=== PATIENT | male | born 1990 | race Caucasian/White ===

== ENCOUNTER 2020-01-30 12:36 | Emergency (ER) | payer MEDICAID, SELFPAY ==
[2020-01-30 13:31] VITALS: BP 132/76; PULSE 75; RESP 18; TEMP 36.7; O2SAT 100; BMI 27.4
--- NOTE | 2020-01-30 13:39 | XR_ITS ---
EXAMINATION: XR ANKLE, LEFT CLINICAL INFORMATION: Trauma. Pain and swelling. COMPARISON: None TECHNIQUE: AP, lateral, and mortise views of the left ankle. FINDINGS: The bones and soft tissues are normal. No fracture. Alignment is anatomic. Joint spaces are maintained. No joint effusion. IMPRESSION: Normal left ankle.
--- NOTE | 2020-01-30 13:41 | ED.LOWEXIN ---
HPI - Extremity Injury (Lower) General Chief Complaint: Extremity Injury, Lower Stated Complaint: l ankle inj Time Seen by Provider: 01/30/20 13:39 Source: patient Mode of arrival: ambulatory Limitations: no limitations History of Present Illness HPI Narrative: states about 5 days ago he was horsing around with his knees and rolled his left ankle where he has been having pain in the lateral ankle since. States there was some bruising that is starting to fade away. Denies any other injury. MD complaint: ankle injury Onset (ago): day(s) Injury: Left: ankle Type of Injury: eversion Place: home Severity: mild Relieving factors: immobilization and rest Exacerbating factors: weight bearing Context: walking Related Data Allergies Allergy/AdvReac Type Severity Reaction Status Date / Time No Known Allergies Allergy Unknown unknown Verified 01/30/20 13:31 [NO KNOWN ALLERGIES] Review of Systems Review of Systems: Constitutional: No Weight loss, No Fever, No Chills, No Night Sweats, No Fatigue, No Malaise ENT/Mouth: No Hearing loss, No Ear Pain, No Nasal Congestion, No Sinus Pain, No Hoarseness, No sore throat, No Rhinorrhea, No Swallowing Difficulty Eyes: No Eye Pain, No Swelling, No Redness, No Foreign Body, No Discharge, No Vision Changes Cardiovascular: No Chest Pain, No SOB, No Dyspnea on Exertion, No Orthopnea, No Edema, No Palpitations Respiratory: No Cough, No Sputum, No Wheezing, No Smoke Exposure, No Dyspnea Gastrointestinal: no complaints Genitourinary: No complaints Musculoskeletal: No joint pain, No Myalgias, + ankle pain Skin: No Skin Lesions, No rash Neuro: No Weakness, No Numbness, No Paresthesias, No Loss of Consciousness, No Dizziness, No Headache Psych: No Anxiety/Panic, No Depression, No SI/HI/AH/VH, No Social Issues, Heme/Lymph: No Bruising, No Bleeding,No Lymphadenopathy Endocrine: No Polyuria, No Polydipsia, No Temperature Intolerance PMF Past Medical History Attestation statement: The following information was validated with the patient. Medical History (Updated 01/30/20 @ 15:16 by Ryan Farias NP) Asthma Social History Social History Advance Directives: No Advance Directives Information Provided: No Physical Exam Vital Signs: Vital Signs: Vital Signs Temp Pulse Resp BP Pulse Ox 01/30/20 13:31 98.0 F 75 18 132/76 100 Body Mass Index 27.4 Const: General: cooperative and healthy appearing; No acute distress or intoxicated appearing Nutritional Appearance: average body habitus Orientation/consciousness: patient oriented x3 Neck: Neck: Yes normal visual inspection Chest: Chest palpation & inspection: normal inspection of the chest Resp: Effort & Inspection: normal respiratory effort Cardio: Jugular venous distension: no JVD : General: Yes no CVA tenderness Back/Spine/Pelvis: Back: no CVA tenderness Skin: General skin exam: no rashes or lesions noted Neuro: General: patient oriented x3 Extrem: Ankle/foot/toe images: 1. Slight ecchymoses slightly blue and yellowish. Mild tender palpation. Full range of motion. Neurovascular intact. Pulse is within normal limits. MDM - Extremity Injury (Lower) Differential Diagnosis Differential diagnosis: Likely ankle sprain and strain and ankle fracture; Unlikely acute internal derangement of knee, fracture of femur, fracture of hip, puncture wound of foot and fracture of toe Medical Records Attestation: I reviewed the patient's medical records. Lab Data Attestation: I reviewed the patient's lab results. Imaging Data Left ankle x-ray: Radiologist's impression: [address] [address] XRay Report Signed Patient: Chirag Alvarez XMR#: [id number] : 1990Acct:[id number] Age/Sex: 30 / MADM Date: 01/30/20 Loc: .ED Attending Dr: Ordering Physician: Ryan Farias NP Date of Service: 01/30/20 Procedure(s): XR ankle LT min 3V Accession Number(s): [id number] cc: Ryan Farias NP~ EXAMINATION: XR ANKLE, LEFT CLINICAL INFORMATION: Trauma. Pain and swelling. COMPARISON: None TECHNIQUE: AP, lateral, and mortise views of the left ankle. FINDINGS: The bones and soft tissues are normal. No fracture. Alignment is anatomic. Joint spaces are maintained. No joint effusion. IMPRESSION: Normal left ankle. Dictated By:MICHELLE RIOS MD Signed By:<Electronically signed by MICHELLE RIOS MD in OV>01/30/20 1436 DD/ 1339 TD/TT: Information Services Tech: PARUL Discharge Plan Discharge Clinical Impression: Ankle sprain and strain Patient Disposition: Home, Self-Care Instructions: Ankle Sprain (ED) Additional Instructions: ice, elevate Use supportive splint as provided X-ray did not show any acute fracture Ibuprofen [id number] alternating with Tylenol for pain discomfort Return if any concerns or worsening symptoms otherwise she started feeling better in a few days Thank you
== END 2020-01-30 15:42 | disposition home or self-care (01) ==
PROVIDERS: Emergency Provider Emergency Medicine; PCP Internal Medicine
DX: S93.402A Sprain of unspecified ligament of left ankle, initial encounter (principal); S96.912A Strain of unspecified muscle and tendon at ankle and foot level, left foot, initial encounter; X50.1XXA Overexertion from prolonged static or awkward postures, initial encounter; Y93.83 Activity, rough housing and horseplay; Y92.019 Unspecified place in single-family (private) house as the place of occurrence of the external cause; Y99.9 Unspecified external cause status
CPT/HCPCS: 73610; 99283

== ENCOUNTER 2020-09-19 21:44 | Emergency (ER) | payer MEDICAID, SELFPAY ==
[2020-09-19 21:49] VITALS: BP 127/74; PULSE 84; RESP 16; TEMP 36.9; O2SAT 95; BMI 27.4
[2020-09-19 22:00] VITALS: PULSE 114
--- NOTE | 2020-09-19 22:19 | ED_ITS ---
HPI - Asthma General Chief Complaint: Asthma Stated Complaint: asthma Time Seen by Provider: 09/19/20 22:19 Source: patient Mode of arrival: ambulatory Limitations: no limitations History of Present Illness HPI Narrative: Patient history of asthma been short of breath since yesterday tried his inhaler without much response does not have medicine for the nebulizer. No chest pain no fever, having dry cough mostly saturating 95% at room air on arrival history of similar attacks in the past no chest pain Related Data Previous Rx's Medication Instructions Recorded albuterol sulfate 2.5 mg INHALATION Q4-6H PRN #180 ml 09/20/20 albuterol sulfate [Proventil HFA] 2 puff INHALATION Q6H PRN #8.5 g 09/20/20 prednisone 40 mg PO DAILY #10 tab 09/20/20 Allergies Allergy/AdvReac Type Severity Reaction Status Date / Time No Known Allergies Allergy Unknown unknown Verified 09/19/20 21:54 [NO KNOWN ALLERGIES] Review of Systems Review of Systems: Yes all other systems are reviewed and are negative [facility] Past Medical History Medical History Asthma Social History Social History Patient Tobacco Use Status: Never used Tobacco Use of substances other than those prescribed or required for medical reasons: Yes Substance Use Type: Marijuana Advance Directives: No Advance Directives Information Provided: Yes Physical Exam Vital Signs: Vital Signs: Last Vital Signs Temp 98.5 F 09/19/20 21:49 Pulse 77 09/19/20 23:41 Resp 16 09/19/20 23:41 BP 120/73 09/19/20 23:41 Pulse Ox 100 09/19/20 23:41 Body Mass Index 27.4 Appearance: Alert. Oriented X3. In moderate respiratory distress Eyes: PERRLA, No Nystagmus ENT: Pharynx normal. Oral Mucosa moist Neck: Normal inspection. Neck supple. CVS: Normal heart rate and rhythm. Pulses normal. Respiratory: Moderate respiratory distress. Using accessory respiratory muscles Equal air entry bilateral, bilateral diffuse wheezing and rhonchi no rales decreased air entry bilateral Abdomen: Soft and nontender. Bowel sounds are present, no mass palpable, no CVA tenderness Skin: Skin warm and dry. Normal skin color. Normal skin turgor. Extremities: No lower extremity edema. No calf tenderness Neuro: Oriented X 3. No motor deficit. No sensory deficit. MDM - Asthma MDM Narrative Medical decision making narrative: Patient feeling much better now after nebul izing treatment IV steroids and magnesium still slight short of breath will give another treatment of albuterol 5 mg plan to discharge him home on prednisone and nebulizing treatment at home Medical Records Attestation: I reviewed the patient's medical records. Lab Data Attestation: I reviewed the patient's lab results. Result diagrams: 09/19/20 22:33 09/19/20 22:33 Labs: Lab Results 09/19/20 09/19/20 09/19/20 Range/Units 21:57 22:33 22:33 WBC 7.2 (4.8-10.8) X10*3/uL RBC 5.59 (4.60-5.80) X10*6/uL Hgb 15.5 (14.0-18.0) g/dl Hct 46.9 (42-52) % MCV 83.9 (80-98) fL MCH 27.7 (27.0-33.0) pg MCHC 33.0 (31.0-36.0) g/dl RDW 13.2 (11.0-16.0) % Plt Count 232 (160-400) X10*3/uL MPV 11.0 (9.4-12.4) fL Immature Gran % (Auto) 0.3 (0.0-0.4) % Neut % (Auto) 59.8 (45-73) % Lymph % (Auto) 25.9 (20-40) % [place] % (Auto) 7.0 (2-11) % Eos % (Auto) 6.4 H (0-4) % Baso % (Auto) 0.6 (0-2) % Lymph # (Auto) 1.9 (1.2-4.9) X10*3/uL [place] # (Auto) 0.5 (0.1-1.2) X10*3/uL Eos # (Auto) 0.5 H (0.0-0.4) X10*3/uL Baso # (Auto) 0.0 (0.0-0.2) X10*3/uL Abs Immat Gran (auto) 0.02 (0.00-0.03) X10*3/uL Absolute Neuts (auto) 4.3 (2.0-8.3) X10*3/uL Absolute Nucleated RBC 0.000 (0.0-0.012) X10*3/uL Nucleated RBC % (auto) 0.0 (0.0-0.2) /100WBC Sodium 140 (135-145) mmol/L Potassium 4.6 (3.3-5.1) mmol/L Chloride 103 (96-108) mmol/L Carbon Dioxide 29 (22-29) mmol/L Anion Gap 13 (12-20) BUN 12 (9-16) mg/dL Creatinine 1.26 (0.5-1.4) mg/dL Estim Creat Clear Calc 72.7 Estimated GFR > 60 Random Glucose 88 (60-115) mg/dL Calcium 10.4 H (8.4-10.2) mg/dL Coronavirus (PCR) NEGATIVE (Negative) Influenza Type A (PCR) NEGATIVE (Negative) Influenza Type B (PCR) NEGATIVE (Negative) RSV RNA Qual (PCR) NEGATIVE (Negative) Discharge Plan Discharge Clinical Impression: Asthma with acute exacerbation Qualifiers: Asthma severity: moderate Asthma persistence: persistent Qualified Code(s): J45.41 - Moderate persistent asthma with (acute) exacerbation Patient Disposition: Home, Self-Care Instructions: Asthma (ED) Additional Instructions: Take medication as prescribed and follow with PCP Prescriptions: New prednisone 20 mg tablet 40 mg PO DAILY Qty: 10 RF: 0 albuterol sulfate 2.5 mg /3 mL (0.083 %) solution for nebulization 2.5 mg inhalation Q4-6H PRN (Reason: shortness of breath or wheezing) Qty: 180 RF: 0 albuterol sulfate [Proventil HFA] 90 mcg/actuation HFA aerosol inhaler 2 puff inhalation Q6H PRN (Reason: shortness of breath or wheezing) Qty: 8.5 RF: 2
[2020-09-19 22:37] LABS: MANUAL DIFF FLAG NO
[2020-09-19 22:39] LABS: Basophils Percent Auto 0.6 % (0-2); Eosinophils Absolute Auto 0.5 X10*3/uL (0.0-0.4); Eosinophils Percent Auto 6.4 % (0-4); Hematocrit 46.9 % (42-52); Hemoglobin 15.5 g/dl (14.0-18.0); Imm Gran Abs Auto 0.02 X10*3/uL (0.00-0.03); Imm Gran Pct Auto 0.3 % (0.0-0.4); Lymphocytes Absolute Auto 1.9 X10*3/uL (1.2-4.9); Lymphocytes Percent Auto 25.9 % (20-40); Mean Corpuscular Hemoglobin 27.7 pg (27.0-33.0); Mean Corpuscular Volume 83.9 fL (80-98); Monocytes Absolute Auto 0.5 X10*3/uL (0.1-1.2); Neutrophils Absolute Auto 4.3 X10*3/uL (2.0-8.3); Neutrophils Percent Auto 59.8 % (45-73); Platelet Count 232 X10*3/uL (160-400); Red Blood Count 5.59 X10*6/uL (4.60-5.80); Red Cell Distribution Width 13.2 % (11.0-16.0); White Blood Count 7.2 X10*3/uL (4.8-10.8)
[2020-09-19] MEDS: methylPREDNISolone Sod Succ 125 MG/2 ML VIAL IVPUSH (22:50)
[2020-09-19] MEDS: Magnesium Sulfate/H2O 2 GM/50 ML PIGGYBACK IV (22:50)
[2020-09-19] MEDS: 0.9 % Sodium Chloride 1,000 ML 999 ML IVCONT (22:50)
[2020-09-19 23:03] LABS: Anion Gap 13 (12-20); Blood Urea Nitrogen 12 mg/dL (9-16); Calcium 10.4 mg/dL (8.4-10.2); Carbon Dioxide 29 mmol/L (22-29); Chloride 103 mmol/L (96-108); Creatinine Clr Calc Pharmacy 72.7; Estimated Glomerular Filt Rate > 60; Glucose Random 88 mg/dL (60-115); Potassium 4.6 mmol/L (3.3-5.1); Sodium 140 mmol/L (135-145)
[2020-09-19] MEDS: Albuterol/Iprat 2.5/0.5MG 3 ML AMPUL.NEB INHALE (23:20)
[2020-09-19] MEDS: Albuterol Sulfate (0.083%) 2.5 MG/3 ML VIAL.NEB 5 MG INHALE (23:20)
[2020-09-19 23:21] VITALS: PULSE 77; O2SAT 99
[2020-09-19 23:41] VITALS: BP 120/73; PULSE 77; RESP 16; O2SAT 100
[2020-09-20 00:53] LABS: Influenza A PCR NEGATIVE (Negative); Influenza B PCR NEGATIVE (Negative); Resp Syncy Virus RNA Qual PCR NEGATIVE (Negative); SARS COV2 PCR INHOUSE NEGATIVE (Negative)
[2020-09-20] MEDS: Albuterol Sulfate (0.083%) 2.5 MG/3 ML VIAL.NEB 5 MG INHALE (01:09)
[2020-09-20 01:10] VITALS: PULSE 79; O2SAT 95
--- NOTE | 2020-09-20 01:54 | PC.NURSE ---
When this feature writer went in to discharge patient he stated that he was dizzy. Patient just finished his nebulizer treatment. Patient's vss and patient was given a soda as well as some crackers. Will recheck patient's vital signs in 15 minutes
== END 2020-09-20 01:45 | disposition home or self-care (01) ==
PROVIDERS: Emergency Provider Internal Medicine; PCP Internal Medicine
DX: J45.41 Moderate persistent asthma with (acute) exacerbation (principal); Z20.822 Contact with and (suspected) exposure to COVID-19; Z79.899 Other long term (current) drug therapy; F12.90 Cannabis use, unspecified, uncomplicated
CPT/HCPCS: 0241U; 36415; 80048; 85025; 94640; 94644; 96361; 96365; 99285; J2930; J3475

== ENCOUNTER 2020-12-12 18:37 | Emergency (ER) | payer MEDICAID, SELFPAY ==
--- NOTE | ~2020-12-12 | XR_ITS ---
EXAMINATION: XR FOOT, RIGHT CLINICAL INFORMATION: Pain COMPARISON: None TECHNIQUE: AP, lateral, and oblique views of the right foot. FINDINGS: No acute fracture or dislocation. No bony erosion or osteopenia. XR/XR foot RT min 3V IMPRESSION: No bony finding.
[2020-12-12 18:58] VITALS: BP 127/76; PULSE 82; RESP 16; TEMP 36.8; O2SAT 97; BMI 27.4
--- NOTE | 2020-12-12 21:54 | ED.EXTPRO ---
HPI - Extremity Problem General Chief complaint: Extremity Problem Stated complaint: feet swelling Time Seen by Provider: 12/12/20 21:33 Source: patient Mode of arrival: ambulatory History of Present Illness HPI Narrative: 30-year-old male without significant past medical history presents with complaints of the bottom of his right foot being swollen and painful since yesterday but denies any associated trauma or fevers, chills and thinks that it is secondary to an allergic reaction but none eyes any noted redness. The pain seems to be primarily at 2nd and 3rd right toes. Related Data Previous Rx's Medication Instructions Recorded albuterol sulfate 2.5 mg INHALATION Q4-6H PRN #180 ml 09/20/20 albuterol sulfate 90 mcg/actuation 2 puff INHALATION Q6H PRN #8.5 g 09/20/20 aerosol inhaler (Proventil HFA) prednisone 20 mg tablet 40 mg PO DAILY #10 tab 09/20/20 Allergies Allergy/AdvReac Type Severity Reaction Status Date / Time No Known Allergies Allergy Unknown unknown Verified 09/19/20 21:54 [NO KNOWN ALLERGIES] Review of Systems Review of Systems: Pertinent positives and negatives as stated in HPI 10 point review of systems is otherwise negative. PMFSH Past Medical History Source: nursing notes reviewed Medical History Asthma Social History Social History Patient Tobacco Use Status: Never used Tobacco Substance Use Type: Marijuana Advance Directives: No Advance Directives Information Provided: No Physical Exam Vital Signs: Vital Signs: Last Vital Signs Temp 98.0 F 12/12/20 22:12 Pulse 59 12/12/20 22:12 Resp 18 12/12/20 22:12 BP 118/72 12/12/20 22:12 Pulse Ox 98 12/12/20 22:12 Body Mass Index 27.4 VITAL SIGNS: Reviewed. GENERAL: Well developed, well nourished, in no acute distress. HEAD: Normocephalic/atraumatic EYES: PERRLA, EOMI LUNGS: Normal breath sounds. SpO2<97> CARDIOVASCULAR: Regular rate and rhythm without noted murmurs ABDOMEN: Soft, non-tender, non-distended with bowel sounds. RIGHT FOOT: No erythema, induration, ulceration, skin breaks, paronychia, palpable DP/PT and capillary refill less than 3 seconds with full range of motion noted at the ankle no pain along the plantar fasciitis distribution and when patient stops dorsiflexing his toes the MTP portion of the sole of his foot appears normal when compared to left. SKIN: Inspection of the skin reveals no rashes, induration, erythema, ulcerations skin break NEUROLOGIC: Alert and oriented x 4. Course Course Course Narrative: 30-year-old male with history and clinical presentation suggestive of possible Flores's but not likely will obtain an x-ray to rule out any bony/joint pathology and provide patient with combination analgesics. Review of all investigations negative for acute findings and on re-evaluation patient reports some improvement with combination analgesics and otherwise discharged home with instructions to ice and follow-up with his primary care provider. Discharge Plan Discharge Clinical Impression: Pain in right foot Patient Disposition: Home, Self-Care Instructions: Metatarsalgia (DC) Additional Instructions: 1. Recommend alternating [id number] Tylenol and ibuprofen as needed for pain control. Recommend placing ice to unexposed skin at the location of your foot discomfort for 5-10 minutes, 3 to 4 times a day. 2. Recommend following up with your primary care provider in the next 2-3 days for re-evaluation further outpatient management. Return to the ER for acute worsening of your symptoms. Prescriptions: No Action prednisone 20 mg tablet 40 mg PO DAILY Qty: 10 RF: 0 albuterol sulfate 2.5 mg /3 mL (0.083 %) solution for nebulization 2.5 mg inhalation Q4-6H PRN (Reason: shortness of breath or wheezing) Qty: 180 RF: 0 albuterol sulfate [Proventil HFA] 90 mcg/actuation HFA aerosol inhaler 2 puff inhalation Q6H PRN (Reason: shortness of breath or wheezing) Qty: 8.5 RF: 2 Referrals: Physician,Unknown [Primary Care Provider] - 2 days
[2020-12-12 22:12] VITALS: BP 118/72; PULSE 59; RESP 18; TEMP 36.7; O2SAT 98
[2020-12-12] MEDS: Acetaminophen 325 MG TABLET 975 MG PO (22:45)
[2020-12-12] MEDS: Ibuprofen 400 MG TABLET PO (22:46)
== END 2020-12-12 22:47 | disposition home or self-care (01) ==
PROVIDERS: Emergency Provider Student in an Organized Health Care Education/Training Program
DX: R60.0 Localized edema (principal); M79.671 Pain in right foot; F12.90 Cannabis use, unspecified, uncomplicated; Z79.899 Other long term (current) drug therapy
CPT/HCPCS: 73630; 99283; 99284

== ENCOUNTER 2021-07-07 00:50 | Inpatient (IN) | payer MEDICAID, SELFPAY ==
[2021-07-07] VITALS (11 sets, daily range): BP systolic 99–144; BP diastolic 43–88; PULSE 73–123; RESP 18–32; TEMP 36.3–36.7; O2SAT 95–100; BMI 22.1
--- NOTE | ~2021-07-07 | XR_ITS ---
EXAMINATION: XR CHEST CLINICAL INFORMATION: Shortness of breath COMPARISON: 10/12/2019 TECHNIQUE: Frontal view of the chest was obtained. FINDINGS: Cardiac leads overlie the chest. The lungs are well expanded. There is no focal consolidation, edema, or effusion. No pneumothorax. The cardiomediastinal silhouette is within normal limits. No acute osseous abnormality. XR/XR chest 1V IMPRESSION: Clear lungs.
[2021-07-07] MEDS: methylPREDNISolone Sod Succ 125 MG/2 ML VIAL IVPUSH (01:00)
[2021-07-07] MEDS: Magnesium Sulfate/H2O 2 GM/50 ML PIGGYBACK IV (01:01)
--- NOTE | 2021-07-07 01:03 | ED.ASTHMA ---
HPI - Asthma General Chief Complaint: Asthma Stated Complaint: Asthma Attack Time Seen by Provider: 07/07/21 00:56 Source: patient Mode of arrival: EMS Limitations: no limitations History of Present Illness HPI Narrative: Patient history of asthma became very short of breath just prior to arrival uses nebulizer treatment at home without much relief when EMS arrived patient was breathing very shallow received 2 DuoNebs and able to speak full sentences no chest pain no fever Related Data Previous Rx's Medication Instructions Recorded albuterol sulfate 2.5 mg (3 mL) INHALATION Q4-6H PRN 09/20/20 #180 ml albuterol sulfate 90 mcg/actuation 2 puff INHALATION Q6H PRN #8.5 g 09/20/20 aerosol inhaler (Proventil HFA) prednisone 20 mg tablet 40 mg PO DAILY #10 tab 09/20/20 Allergies Allergy/AdvReac Type Severity Reaction Status Date / Time No Known Allergies Allergy Unknown unknown Verified 09/19/20 21:54 [NO KNOWN ALLERGIES] Review of Systems Review of Systems: Yes all other systems are reviewed and are negative [facility] Past Medical History Medical History Asthma Social History Social History Patient Tobacco Use Status: Never used Tobacco Substance Use Type: Marijuana Advance Directives: No Physical Exam Vital Signs: Vital Signs: Last Vital Signs Temp 98.1 F 07/07/21 01:45 Pulse 123 H 07/07/21 01:45 Resp 32 H 07/07/21 01:45 BP 144/88 H 07/07/21 01:45 Pulse Ox 100 07/07/21 01:45 BMI result Body Mass Index 22.1 Appearance: Alert. Oriented X3. In severe respiratory distress unable to speak full sentence ENT: Pharynx normal. Oral Mucosa moist Neck: Normal inspection. Neck supple. CVS: Normal heart rate and rhythm. Pulses normal. Respiratory: Moderate respiratory distress with bilateral wheezing and rhonchi no crackles Abdomen: Soft and nontender. Bowel sounds are present, no mass palpable, Skin: Skin warm and dry. Normal skin color. Normal skin turgor. Extremities: No lower extremity edema. No calf tenderness Neuro: Oriented X 3. MDM - Asthma MDM Narrative Medical decision making narrative: Patient with severe asthma attack received multiple continues nebulizing treatment still tachypneic and tachycardic very tight will admit patient for status asthmaticus chest x-ray negative for any infiltrate Lab Data Attestation: I reviewed the patient's lab results. Result diagrams: 07/07/21 02:23 07/07/21 02:23 Labs: Lab Results 07/07/21 07/07/21 07/07/21 Range/Units 02:23 02:23 02:23 WBC 13.0 H (4.8-10.8) X10*3/uL RBC 4.96 (4.60-5.80) X10*6/uL Hgb 13.5 L (14.0-18.0) g/dl Hct 41.2 L (42.0-52.0) % MCV 83.1 (80.0-98.0) fL MCH 27.2 (27.0-33.0) pg MCHC 32.8 (31.0-36.0) g/dl RDW 13.2 (11.0-16.0) % Plt Count 229 (160-400) X10*3/uL MPV 10.2 (9.4-12.4) fL Immature Gran % (Auto) 0.4 (0.0-0.4) % Neut % (Auto) 88.1 H (45-73) % Lymph % (Auto) 6.8 L (20-40) % [place] % (Auto) 2.8 (2-11) % Eos % (Auto) 1.7 (0-4) % Baso % (Auto) 0.2 (0-2) % Lymph # (Auto) 0.9 L (1.2-4.9) X10*3/uL [place] # (Auto) 0.4 (0.1-1.2) X10*3/uL Eos # (Auto) 0.2 (0.0-0.4) X10*3/uL Baso # (Auto) 0.0 (0.0-0.2) X10*3/uL Abs Immat Gran (auto) 0.05 H (0.00-0.03) X10*3/uL Absolute Neuts (auto) 11.5 H (2.0-8.3) x10*3/uL Absolute Nucleated RBC 0.000 (0.0-0.012) X10*3/uL Nucleated RBC % (auto) 0.0 (0.0-0.2) /100WBC Sodium 140 (135-145) mmol/L Potassium 3.5 D (3.3-5.1) mmol/L Chloride 102 (96-108) mmol/L Carbon Dioxide 23 (22-29) mmol/L Anion Gap 19 (12-20) BUN 9 (9-16) mg/dL Creatinine 1.27 (0.5-1.4) mg/dL Estim Creat Clear Calc 65.0 Estimated GFR > 60 Random Glucose 148 H D (60-115) mg/dL Calcium 9.5 D (8.4-10.2) mg/dL COVID-19 (JOSE) Negative (Negative) COVID-19 Clin Com See Note Discharge Plan Discharge Clinical Impression: Asthma with status asthmaticus Patient Disposition: Admitted As Inpatient
[2021-07-07] MEDS: Albuterol Sulfate (0.083%) 2.5 MG/3 ML VIAL.NEB 7.5 MG INHALE (01:15)
[2021-07-07] MEDS: 0.9 % Sodium Chloride 1,000 ML 999 ML IV (01:37)
[2021-07-07 02:29] LABS: Basophils Percent Auto 0.2 % (0-2); Eosinophils Absolute Auto 0.2 X10*3/uL (0.0-0.4); Eosinophils Percent Auto 1.7 % (0-4); Hematocrit 41.2 % (42.0-52.0); Hemoglobin 13.5 g/dl (14.0-18.0); Imm Gran Abs Auto 0.05 X10*3/uL (0.00-0.03); Imm Gran Pct Auto 0.4 % (0.0-0.4); Lymphocytes Absolute Auto 0.9 X10*3/uL (1.2-4.9); Lymphocytes Percent Auto 6.8 % (20-40); Mean Corpuscular HGB Conc 32.8 g/dl (31.0-36.0); Mean Corpuscular Hemoglobin 27.2 pg (27.0-33.0); Mean Corpuscular Volume 83.1 fL (80.0-98.0); Mean Platelet Volume 10.2 fL (9.4-12.4); Monocytes Absolute Auto 0.4 X10*3/uL (0.1-1.2); Monocytes Percent Auto 2.8 % (2-11); Neutrophils Absolute Auto 11.5 x10*3/uL (2.0-8.3); Neutrophils Percent Auto 88.1 % (45-73); Platelet Count 229 X10*3/uL (160-400); Red Blood Count 4.96 X10*6/uL (4.60-5.80); Red Cell Distribution Width 13.2 % (11.0-16.0)
[2021-07-07 02:30] LABS: MANUAL DIFF FLAG NO
[2021-07-07 02:42] LABS: Anion Gap 19 (12-20); Blood Urea Nitrogen 9 mg/dL (9-16); Calcium 9.5 mg/dL (8.4-10.2); Carbon Dioxide 23 mmol/L (22-29); Chloride 102 mmol/L (96-108); Estimated Glomerular Filt Rate > 60; Glucose Random 148 mg/dL (60-115); Potassium 3.5 mmol/L (3.3-5.1); Sodium 140 mmol/L (135-145)
[2021-07-07 02:46] LABS: COVID-19 Test Negative (Negative)
--- NOTE | 2021-07-07 04:04 | P.HPHOSP_ITS ---
History of Present Illness Date of Service: 07/07/21 Chief Complaint: shortness of breath 31-year-old male with a past medical history of asthma presented to the hospital with a chief complaint of shortness of breath. Patient reports that over the past 2 days he has been having shortness of breath at associated dry cough; the symptoms have been gradually worsening hence decided to come to the ER for further evaluation. Denies any triggers; denies any fever chills cough. Denies any nausea vomiting or diarrhea. Denies any urinary symptoms. Review of all other systems is negative except mentioned above ER course: Per ER team patient noted to be acutely short of breath; given multiple nebulizations and steroids; also noted to be tach and telemetry. Placed on supplemental oxygen. Admitted for further management PMFSH Medical History Asthma Pertinent family history: father had asthma Social History Patient Tobacco Use Status: Never used Tobacco Substance Use Type: Marijuana Advance Directives: No Meds Allergies Allergy/AdvReac Type Severity Reaction Status Date / Time No Known Allergies Allergy Unknown unknown Verified 09/19/20 21:54 [NO KNOWN ALLERGIES] Active Medications: Current Medications Acetaminophen (Acetaminophen 325 Mg Tablet) 650 mg PO Q6H PRN PRN Reason: Pain, Mild (Pain Scale 1-3) Albuterol/Ipratropium (Albuterol/Iprat 2.5/0.5mg 3 Ml Ampul.Neb) 3 ml INHALE RQ4H PRN PRN Reason: Shortness of Breath/Wheezing Albuterol/Ipratropium (Albuterol/Iprat 2.5/0.5mg 3 Ml Ampul.Neb) 3 ml INHALE RQ6H WHILE AWAKE ROXANA Benzonatate (Benzonatate 100 Mg Capsule) 100 mg PO TID PRN PRN Reason: Cough Famotidine (Famotidine/Pf 20 Mg/2 Ml Vial) 20 mg IVPUSH BID ROXANA Methylprednisolone Sodium Succinate (Methylprednisolone Sod Succ 40 Mg/Ml Vial) 40 mg IVPUSH Q6H ROXANA Senna (Sennosides 8.6 Mg Tablet) 17.2 mg PO BEDTIME PRN PRN Reason: Constipation Physical Exam Vital Signs and Narrative: Vital Signs: Last Vital Signs Temp 98.1 F 03/20/22 01:45 Pulse 123 H 07/07/21 01:45 Resp 32 H 07/07/21 01:45 BP 144/88 H 07/07/21 01:45 Pulse Ox 100 07/07/21 01:45 BMI result Body Mass Index 22.1 Gen: Appears be in no acute distress; on supplemental oxygen. Able to finish sentences. HEENT: NCAT, Moist mucosa. Pulmonary: bilateral inspiratory and expiratory wheezes noted CVS: Normal S1-S2 Abdomen: BS+, Soft, Nontender Extremities: Warm well perfused Neuro: Alert and awake. Results Labs CBC and Chem 7: 07/07/21 02:23 07/07/21 02:23 Labs: Laboratory Results - last 24 hr 07/07/21 07/07/21 07/07/21 02:23 02:23 02:23 MCV 83.1 MCH 27.2 MCHC 32.8 RDW 13.2 Plt Count 229 MPV 10.2 Immature Gran % (Auto) 0.4 Neut % (Auto) 88.1 H Lymph % (Auto) 6.8 L [place] % (Auto) 2.8 Eos % (Auto) 1.7 Baso % (Auto) 0.2 Lymph # (Auto) 0.9 L [place] # (Auto) 0.4 Eos # (Auto) 0.2 Baso # (Auto) 0.0 Abs Immat Gran (auto) 0.05 H Absolute Neuts (auto) 11.5 H Absolute Nucleated RBC 0.000 Nucleated RBC % (auto) 0.0 Anion Gap 19 Estim Creat Clear Calc 65.0 Estimated GFR > 60 Random Glucose 148 H D Calcium 9.5 D COVID-19 (JOSE) Negative COVID-19 Clin Com See Note Imaging Radiologist's Impressions: Impressions Chest X-Ray 07/07/21 01:45 IMPRESSION: Clear lungs. Assessment and Plan (1) Acute asthma exacerbation: Status: Acute Plan 31-year-old male with a past medical history of asthma presented to the hospital with a chief complaint of shortness of breath; noted to be in acute asthma exacerbation. Admitted for further management. Acute Asthma exacerbation: Continue nebulizations standing and p.r.n. Continue Solu-Medrol IV Tessalon p.r.n. Pulmonary consult Tachycardia: Likely in setting of multiple nebulizations in the ER. Monitor on telemetry. Elevated random blood glucose: Likely steroid induced. Monitor glucose levels. DVT prophylaxis: Lovenox Code status: Full code Quality Stroke Does the patient have a stroke diagnosis?: No VTE Prior VTE?: No VTE Risk Level:: Medical - moderate - high VTE Device Contraindication: Treatment Not Indicated VTE Drug Contraindication: N/A - Med Ordered
--- NOTE | 2021-07-07 04:32 | PC.NURSE ---
I assumed nursing care of Chirag upon his arrival to bed 13 via EMS from home for evaluation of asthma exacerbation. On arrival Chirag is taking a DuoNeb, +audible wheezing, +use of accessory muscles, RR 40, sat's on DuoNeb 96%, HR 136. Anwar to bedside on arrival, additional nebs ordered, EMS placed an IV on their arrival to bed 13 and I obtained requested Magnesium and SoluMedrol and they were administered immediately after arrival. RT also came to bedside immediately after arrival and auscultated LS and continued neb treatments for the pt. Within an hour the pts HR had decreased to 110's-120's, RR decreased to 22, O2 sats on 2L 97%, respirations non-labored. Chirag has remained alert, oriented x 3. He makes eye contact with RN and is extremely soft spoken. He has a flat affect and often when asked questions he does not respond verbally and looks away from me, as if avoiding making eye contact. He denies SI. Denies HI. He denies chest pain. No nausea. No vomiting. Pt has been taking PO fluids without difficulty. He is aware that he is TBADM and verbalizes an understanding of this.
[2021-07-07] MEDS: methylPREDNISolone Sod Succ 40 MG/ML VIAL IVPUSH ×2 (06:40→20:20)
[2021-07-07 06:59] LABS: MANUAL DIFF FLAG NO
[2021-07-07 07:15] LABS: Basophils Percent Auto 0.1 % (0-2); Hematocrit 42.1 % (42.0-52.0); Hemoglobin 13.6 g/dl (14.0-18.0); Imm Gran Abs Auto 0.05 X10*3/uL (0.00-0.03); Imm Gran Pct Auto 0.5 % (0.0-0.4); Lymphocytes Absolute Auto 0.5 X10*3/uL (1.2-4.9); Lymphocytes Percent Auto 4.7 % (20-40); Mean Corpuscular HGB Conc 32.3 g/dl (31.0-36.0); Mean Corpuscular Hemoglobin 27.4 pg (27.0-33.0); Mean Corpuscular Volume 84.9 fL (80.0-98.0); Mean Platelet Volume 10.8 fL (9.4-12.4); Monocytes Absolute Auto 0.1 X10*3/uL (0.1-1.2); Monocytes Percent Auto 1.2 % (2-11); Neutrophils Absolute Auto 10.2 x10*3/uL (2.0-8.3); Neutrophils Percent Auto 93.5 % (45-73); Platelet Count 250 X10*3/uL (160-400); Red Blood Count 4.96 X10*6/uL (4.60-5.80); Red Cell Distribution Width 13.4 % (11.0-16.0); SCAN SMEAR FLAG 1; White Blood Count 10.9 X10*3/uL (4.8-10.8)
[2021-07-07 07:31] LABS: Anion Gap 24 (12-20); Blood Urea Nitrogen 10 mg/dL (9-16); Calcium 9.8 mg/dL (8.4-10.2); Carbon Dioxide 16 mmol/L (22-29); Chloride 102 mmol/L (96-108); Creatinine Clr Calc Pharmacy 55.8; Estimated Glomerular Filt Rate 55; Glucose Random 188 mg/dL (60-115); Potassium 3.8 mmol/L (3.3-5.1); Sodium 138 mmol/L (135-145)
--- NOTE | 2021-07-07 08:22 | PHA.MEDREC ---
Pharmacy Consult ? Medication Reconciliation Pharmacy has completed the medication reconciliation. Patient only has abluterol at home. Cookie Mcclelland, RishabhD
[2021-07-07] MEDS: Albuterol/Iprat 2.5/0.5MG 3 ML AMPUL.NEB INHALE ×3 (08:37→21:32)
[2021-07-07] MEDS: Famotidine/PF 20 MG/2 ML VIAL IVPUSH ×2 (09:15→20:20)
[2021-07-07 10:21] LABS: Adenovirus PCR Not Detected (Not Detect.); Bordetella parapertussis PCR Not Detected (Not Detect.); Bordetella pertussis PCR Not Detected (Not Detect.); Chlamydia pneumoniae PCR Not Detected (Not Detect.); Coronavirus 229E PCR Not Detected (Not Detect.); Coronavirus HKU1 PCR Not Detected (Not Detect.); Coronavirus NL63 PCR Not Detected (Not Detect.); Coronavirus OC43 PCR Not Detected (Not Detect.); Human metapneumovirus PCR Not Detected (Not Detect.); Influenza A PCR Not Detected (Not Detect.); Influenza B PCR Not Detected (Not Detect.); Mycoplasma pneumoniae PCR Not Detected (Not Detect.); Parainfluenza 1 PCR Not Detected (Not Detect.); Parainfluenza 2 PCR Not Detected (Not Detect.); Parainfluenza 3 PCR Not Detected (Not Detect.); Parainfluenza 4 PCR Not Detected (Not Detect.); RSV PCR Not Detected (Not Detect.); Rhino/Enterovirus PCR Not Detected (Not Detect.); SARS-CoV-2 PCR Not Detected (Not Detect.)
--- NOTE | 2021-07-07 11:03 | PM.CNPUL ---
History of Present Illness History of Present Illness Consult date: 07/07/21 Chief complaint: Asthma exacerbation Narrative: This is an inpatient pulmonary consultation. The patient is a 31-year-old gentleman lifelong nonsmoker with history of asthma now presenting with worsening symptoms for the last 3 days. He has been using his nebulizer in his rescue inhaler multiple times a day without any significant improvement. Complaining of chest tightness wheezing shortness of breath and cough. Nonproductive in nature. Denies any sick contacts. Since he was not responding to his therapy decided to come in for further evaluation. Upon arrival he was tachypneic and tachycardic. Also has significant wheezing. Chest x-ray was clear. Blood work is demonstrated eosinophilia in the past. Likely has allergic asthma. Now going to the [facility] his symptoms will be worsening. The patient is not on maintenance therapy right now. This is a positive family history of asthma. Review of Systems Constitutional: Constitutional: Denies night sweats ENT: Denies change in voice, Denies lip swelling, Denies mouth pain, Reports nasal congestion, Reports nasal discharge and Denies tongue swelling Cardiovascular: Cardiovascular: Denies chest pain Respiratory: Respiratory: Reports cough and Reports wheezing Gastrointestinal: Gastrointestinal: Denies abdominal pain Musculoskeletal: Musculoskeletal: Denies no additional musculoskeletal complaints Neurologic: Denies Neuro-related abnormal movements Psychiatric: Psychiatric: Denies no additional psychiatric complaints Hematologic/Lymphatic: Hematologic/Lymphatic: Denies easy bleeding and Denies lymphadenopathy Allergic/Immunologic: Allergic/Immunologic: Denies lip swelling, Denies tongue swelling and Reports wheezing PMFSH Past Medical History Medical History Asthma Social History Social History Alcohol intake: unknown Patient Tobacco Use Status: Never used Tobacco Use of substances other than those prescribed or required for medical reasons: Unknown Substance Use Type: Marijuana Advance Directives: No Meds Allergies Allergy/AdvReac Type Severity Reaction Status Date / Time No Known Allergies Allergy Unknown unknown Verified 09/19/20 21:54 [NO KNOWN ALLERGIES] Active Medications: Current Medications Acetaminophen (Acetaminophen 325 Mg Tablet) 650 mg PO Q6H PRN PRN Reason: Pain, Mild (Pain Scale 1-3) Albuterol/Ipratropium (Albuterol/Iprat 2.5/0.5mg 3 Ml Ampul.Neb) 3 ml INHALE RQ4H PRN PRN Reason: Shortness of Breath/Wheezing Albuterol/Ipratropium (Albuterol/Iprat 2.5/0.5mg 3 Ml Ampul.Neb) 3 ml INHALE RQ6H WHILE AWAKE [facility] Last Admin: 07/07/21 08:37 Dose: 3 ml Documented by: Benzonatate (Benzonatate 100 Mg Capsule) 100 mg PO TID PRN PRN Reason: Cough Famotidine (Famotidine/Pf 20 Mg/2 Ml Vial) 20 mg IVPUSH BID [facility] Last Admin: 07/07/21 09:15 Dose: 20 mg Documented by: Methylprednisolone Sodium Succinate (Methylprednisolone Sod Succ 40 Mg/Ml Vial) 40 mg IVPUSH Q12H [facility] Senna (Sennosides 8.6 Mg Tablet) 17.2 mg PO BEDTIME PRN PRN Reason: Constipation Physical Exam Vital Signs: Vital Signs: Last Vital Signs Temp 97.9 F 07/07/21 07:49 Pulse 112 H 07/07/21 08:38 Resp 22 H 07/07/21 08:38 BP 108/50 L 07/07/21 07:49 Pulse Ox 97 07/07/21 07:49 BMI result Body Mass Index 22.1 Const: General: alert Neck: Neck: Yes normal visual inspection, Yes full ROM and Yes no lymphadenopathy Chest: Chest palpation & inspection: normal inspection of the chest Resp: Auscultation: diminished lung sounds Cardio: Rate: regular rate Rhythm: regular rhythm Heart sounds: S1 normal heart sound present and S2 normal heart sound present GI: Palpation (GI): Soft to palpation and nontender Auscultation: normal bowel sounds Skin: General skin exam: rashes and/or lesions noted Results Laboratory Findings CBC and BMP: 07/07/21 06:51 07/07/21 06:51 Abnormal lab findings: Abnormal Labs 07/07/21 07/07/21 07/07/21 02:23 02:23 06:51 WBC 13.0 H 10.9 H Hgb 13.5 L 13.6 L Hct 41.2 L Immature Gran % (Auto) 0.5 H Neut % (Auto) 88.1 H 93.5 H Lymph % (Auto) 6.8 L 4.7 L Sampson % (Auto) 1.2 L Lymph # (Auto) 0.9 L 0.5 L Abs Immat Gran (auto) 0.05 H 0.05 H Absolute Neuts (auto) 11.5 H 10.2 H Carbon Dioxide Anion Gap Creatinine Random Glucose 148 H D 07/07/21 06:51 WBC Hgb Hct Immature Gran % (Auto) Neut % (Auto) Lymph % (Auto) Sampson % (Auto) Lymph # (Auto) Abs Immat Gran (auto) Absolute Neuts (auto) Carbon Dioxide 16 L Anion Gap 24 H Creatinine 1.48 H Random Glucose 188 H Assessment and Plan (1) Acute asthma exacerbation: Status: Acute (2) Eosinophilia: Status: Acute (3) Metabolic acidosis: Status: Acute Likely from albuterol use and renal insufficiency Plan Start Breo 200 Start Spiriva daily Likely ok to switch to PO Prednisone by tomorrow Fatoumata monitor BMP to make sure AG improves Will have him f/u with outpt Pulmonary to better manage is asthma Procedures Date of Service Date of Service: 07/07/21
--- NOTE | 2021-07-07 12:09 | PM.EVENT ---
Event Note Date of Service: 07/07/21 Event Note: day hospitalist update S: Wheezing + tachypneic No cough/sputum No fever O: VS- T 97.9, P 112, R 22, SaO2 97 on 2L, BP 118/50 gen- mild resp distress lungs- tachypneic, diffuse exp wheezing CV- tachycardic, no m/r/g abd- soft/NT ext- no C/C/E neuro- non-focal labs- RVP PCR negative A/P: hospital d#1 31yo M with persistent asthma admitted for acute exacerbation - continue steroids, standing/prn nebs - pulm consulted, started on triple controller therapy - wean O2 as tolerated
--- NOTE | 2021-07-07 15:11 | MHC.CM.PN ---
Addendum entered by Jessica Bobo RN 07/07/21 15:14: PT REPORTS HIS CELL PHONE #[phone] Original Note: EMR REVIEWED, PT ADMITTED W/ASTHMA EXACERBATION, CM MET W/PT WHO REPORTS HE LIVES W/HIS MOTHER, IS INDEPENDENT W/ALL CARE, USES A NEBULIZER AND ASTHMA INHALERS FOR DME, NO HOME SERVICES, PT EDUCATED ON AND DECLINES HCP, PT DOES NOT RECALL THE NAME OF HIS PCP HOWEVER DOES REPORT PROVIDER IS AT [facility], PT REPORTS HE HAS BEEN COVID VACCINATED X2, DOES NOT KNOW IF IT WAS PFIZER/MODERNA AND REPORTS HE STILL NEEDS THE BOOSTER. D/C PLAN: HOME NO SERVICES, [facility] SHUTTLE IF HE CAN NOT FIND TRANSPORT HOME.
[2021-07-08 03:41] VITALS: BP 117/57; PULSE 72; RESP 18; TEMP 36.3; O2SAT 95
[2021-07-08] MEDS: methylPREDNISolone Sod Succ 40 MG/ML VIAL IVPUSH (06:13)
[2021-07-08 06:46] LABS: Anion Gap 16 (12-20); Blood Urea Nitrogen 18 mg/dL (9-16); Calcium 10.3 mg/dL (8.4-10.2); Carbon Dioxide 23 mmol/L (22-29); Chloride 104 mmol/L (96-108); Estimated Glomerular Filt Rate > 60; Glucose Random 135 mg/dL (60-115); Potassium 5.3 mmol/L (3.3-5.1); Sodium 138 mmol/L (135-145)
[2021-07-08 07:02] VITALS: BP 133/63; PULSE 78; RESP 16; TEMP 36.1; O2SAT 96
[2021-07-08 07:40] VITALS: PULSE 78; RESP 20; O2SAT 96
[2021-07-08] MEDS: Albuterol/Iprat 2.5/0.5MG 3 ML AMPUL.NEB INHALE (07:40)
[2021-07-08] MEDS: Fluticasone/Vilanterol 200/25 BLST.W.DEV 1 PUFF INHALE (08:49)
[2021-07-08 10:23] LABS: Anion Gap 14 (12-20); Blood Urea Nitrogen 20 mg/dL (9-16); Calcium 10.1 mg/dL (8.4-10.2); Carbon Dioxide 26 mmol/L (22-29); Chloride 103 mmol/L (96-108); Creatinine Clr Calc Pharmacy 63.5; Estimated Glomerular Filt Rate > 60; Glucose Random 112 mg/dL (60-115); Potassium 4.4 mmol/L (3.3-5.1); Sodium 139 mmol/L (135-145)
[2021-07-08] MEDS: Famotidine/PF 20 MG/2 ML VIAL IVPUSH (10:26)
--- NOTE | 2021-07-08 11:08 | P.DS_ITS ---
DS: Providers Provider Date of Service: 07/08/21 Date of admission: 07/07/21 03:34 Date of discharge: 07/08/21 Primary care physician: [facility] Consults: 07/07/21 04:07 Consult to Pulmonology Routine Consulting Provider: Edouard Quiroz Reason for consultation: acute asthma DS: Diagnosis Discharge Diagnosis (1) Acute asthma exacerbation: Status: Acute (2) Eosinophilia: Status: Acute (3) Metabolic acidosis: Status: Acute (4) Moderate persistent allergic asthma: Status: Acute DS: Summary Hospital Course Hospital Course: from admission H+P by hospitalist Milan Hawthorne, 07/07/21: 31-year-old male with a past medical history of asthma presented to the hospital with a chief complaint of shortness of breath.? Patient reports that over the past 2 days he has been having shortness of breath at associated dry cough; the symptoms have been gradually worsening hence decided to come to the ER for further evaluation.? Denies any triggers; denies any fever chills cough.? Denies any nausea vomiting or diarrhea.? Denies any urinary symptoms.? Review of all other systems is negative except mentioned above ER course: Per ER team patient noted to be acutely short of breath; given multiple nebulizations and steroids;? also noted to be tach and telemetry.? Placed on supplemental oxygen.? Admitted for further management Mr Alvarez was admitted to the medical/surgical floor and treated with IV steroids and nebulized bronchodilators. Respiratory pathogen PCR panel was negative. He has a history of eosinophila and likely has allergic asthma. He was seen by Pulmonology and started on triple controller therapy with LAMA + ICS/LABA. He improved and was discharged home with 3 more days of PO steroids and controller inhalers. He should follow up with Primary Care in 1 week and Pulmonology in 2 wks. Time Spent with Patient Time attestation: Total time spent providing and/or coordinating discharge services: Discharge coordination time: Greater than 30 minutes Quality: Stroke Does the patient have a stroke diagnosis?: No Physical Exam Vital Signs: Vital Signs: Last Vital Signs Temp 97 F 07/08/21 07:02 Pulse 78 07/08/21 07:40 Resp 20 07/08/21 07:40 BP 133/63 07/08/21 07:02 Pulse Ox 96 07/08/21 07:02 BMI result Body Mass Index 22.1 Gen: in no acute distress HEENT: sclera anicteric, moist mucus membranes Neck: supple Lungs: clear to auscultation bilaterally Heart: regular rate and rhythm, no murmurs Abd: soft, non-tender, non-distended Ext: no edema Skin: warm/well-perfused Neuro: alert and oriented x3, no focal findings Psych: appropriate affect DS: Data Data Completed and Pending Completed studies during hospitalization [Text1]: Laboratory Results WBC 10.9 X10*3/uL (4.8-10.8) H 07/07/21 06:51 RBC 4.96 X10*6/uL (4.60-5.80) 07/07/21 06:51 Hgb 13.6 g/dl (14.0-18.0) L 07/07/21 06:51 Hct 42.1 % (42.0-52.0) 07/07/21 06:51 MCV 84.9 fL (80.0-98.0) 07/07/21 06:51 MCH 27.4 pg (27.0-33.0) 07/07/21 06:51 MCHC 32.3 g/dl (31.0-36.0) 07/07/21 06:51 RDW 13.4 % (11.0-16.0) 07/07/21 06:51 Plt Count 250 X10*3/uL (160-400) 07/07/21 06:51 MPV 10.8 fL (9.4-12.4) 07/07/21 06:51 Immature Gran % (Auto) 0.5 % (0.0-0.4) H 07/07/21 06:51 Neut % (Auto) 93.5 % (45-73) H 07/07/21 06:51 Lymph % (Auto) 4.7 % (20-40) L 07/07/21 06:51 Screven % (Auto) 1.2 % (2-11) L 07/07/21 06:51 Eos % (Auto) 0.0 % (0-4) 07/07/21 06:51 Baso % (Auto) 0.1 % (0-2) 07/07/21 06:51 Lymph # (Auto) 0.5 X10*3/uL (1.2-4.9) L 07/07/21 06:51 Screven # (Auto) 0.1 X10*3/uL (0.1-1.2) 07/07/21 06:51 Eos # (Auto) 0.0 X10*3/uL (0.0-0.4) 07/07/21 06:51 Baso # (Auto) 0.0 X10*3/uL (0.0-0.2) 07/07/21 06:51 Abs Immat Gran (auto) 0.05 X10*3/uL (0.00-0.03) H 07/07/21 06:51 Absolute Neuts (auto) 10.2 x10*3/uL (2.0-8.3) H 07/07/21 06:51 Absolute Nucleated RBC 0.000 X10*3/uL (0.0-0.012) 07/07/21 06:51 Nucleated RBC % (auto) 0.0 /100WBC (0.0-0.2) 07/07/21 06:51 Sodium 139 mmol/L (135-145) 07/08/21 09:48 Potassium 4.4 mmol/L (3.3-5.1) 07/08/21 09:48 Chloride 103 mmol/L (96-108) 07/08/21 09:48 Carbon Dioxide 26 mmol/L (22-29) 07/08/21 09:48 Anion Gap 14 (12-20) 07/08/21 09:48 BUN 20 mg/dL (9-16) H 07/08/21 09:48 Creatinine 1.30 mg/dL (0.5-1.4) 07/08/21 09:48 Estim Creat Clear Calc 63.5 07/08/21 09:48 Estimated GFR > 60 07/08/21 09:48 Random Glucose 112 mg/dL (60-115) 07/08/21 09:48 Calcium 10.1 mg/dL (8.4-10.2) 07/08/21 09:48 Respiratory Panel Mccormick See Note 07/07/21 08:46 Adenovirus (Rapid PCR) Not Detected (Not Detect.) 07/07/21 08:46 B.pert (TEM-PCR) Not Detected (Not Detect.) 07/07/21 08:46 B.parapertussis DNA PCR Not Detected (Not Detect.) 07/07/21 08:46 C. pneumoniae DNA (PCR) Not Detected (Not Detect.) 07/07/21 08:46 Coronavirus OC43 (PCR) Not Detected (Not Detect.) 07/07/21 08:46 Coronavirus HKU1 (PCR) Not Detected (Not Detect.) 07/07/21 08:46 Coronavirus 229E (PCR) Not Detected (Not Detect.) 07/07/21 08:46 COVID-19 (JOSE) Negative (Negative) 07/07/21 02:23 COVID-19 Clin Com See Note 07/07/21 02:23 Coronavirus NL63 (PCR) Not Detected (Not Detect.) 07/07/21 08:46 Human Metapneumovir PCR Not Detected (Not Detect.) 07/07/21 08:46 Influenza A (RT-PCR) Not Detected (Not Detect.) 07/07/21 08:46 Influenza B (RT-PCR) Not Detected (Not Detect.) 07/07/21 08:46 M. pneumoniae (PCR) Not Detected (Not Detect.) 07/07/21 08:46 Parainfluenza 1 (PCR) Not Detected (Not Detect.) 07/07/21 08:46 Parainfluenza 2 (PCR) Not Detected (Not Detect.) 07/07/21 08:46 Parainfluenza 3 (PCR) Not Detected (Not Detect.) 07/07/21 08:46 Parainfluenza 4 (PCR) Not Detected (Not Detect.) 07/07/21 08:46 RSV (PCR) Not Detected (Not Detect.) 07/07/21 08:46 Entero/Rhino (PCR) Not Detected (Not Detect.) 07/07/21 08:46 SARS-CoV-2 RNA (RT-PCR) Not Detected (Not Detect.) 07/07/21 08:46 Impressions Chest X-Ray 07/07/21 01:45 IMPRESSION: Clear lungs. Discharge Plan Discharge Patient Disposition: Home, Self-Care Discharge Diagnosis: persistent asthma with acute exacerbation Referrals: [facility] [Primary Care Provider] - 1 Week Discharge Medications: New Spiriva with HandiHaler 18 mcg Capsule, W/Inhalation Device 1 puff inhalation RDAILY Qty: 1 0RF Breo Ellipta 200-25 mcg/dose Blister With Device 1 puff inhalation RDAILY Qty: 1 0RF prednisone 20 mg tablet 40 mg PO DAILY Qty: 6 0RF Continued albuterol sulfate 2.5 mg /3 mL (0.083 %) solution for nebulization 2.5 mg inhalation Q4-6H PRN (Reason: shortness of breath or wheezing) Qty: 180 0RF albuterol sulfate [Proventil HFA] 90 mcg/actuation HFA aerosol inhaler 2 puff inhalation Q6H PRN (Reason: shortness of breath or wheezing) Qty: 8.5 2RF Discharge Orders: Discharge Order (Routine); Ordered 07/08/21 Ordered By: Jennifer Phelan Diet: advance to usual diet Activity on Discharge: As tolerated Stand Alone Forms: Patient Portal Discharge page Care Plan Goals: healthy lungs Health Concerns: persistent allergic asthma Plan of Treatment: prednisone 40 mg daily for 3 days start controller inhalers: Breo 1 puff daily, Spiriva 1 puff daily [or formulary equivalents] albuterol for rescue see your primary care doctor in 1 week see financial service rep Dr Beatty in 2 weeks Assessment: see Discharge Summary Patient Instructions: Asthma (DC)
[2021-07-08 11:19] VITALS: BP 111/59; RESP 16; TEMP 35.5; O2SAT 97
--- NOTE | 2021-07-08 12:02 | MHC.CM.PN ---
nurse protective services case worker note discharged home no services pcp at the [facility] -patient to call for post hospital discharge follow up
== END 2021-07-08 14:01 | disposition home or self-care (01) | DRG 141 ==
LOC: HO.ED 02:53 → HO.EDOVER 04:36 → HO.S3 19:48
PROVIDERS: Admitting Provider Hospitalist; Emergency Provider Internal Medicine; PCP Internal Medicine; Visit Provider Family Medicine
DX: J45.41 Moderate persistent asthma with (acute) exacerbation (principal); D72.18 Eosinophilia in diseases classified elsewhere; E87.2 Acidosis; R00.0 Tachycardia, unspecified; Z20.822 Contact with and (suspected) exposure to COVID-19; Z79.51 Long term (current) use of inhaled steroids; Z79.899 Other long term (current) drug therapy
CPT/HCPCS: 36415; 71045; 80048; 85025; 87633; 87635; 94640; 94644; 96361; 96365; 96375; 99284; 99285; J2920; J2930; J3475

== ENCOUNTER 2021-10-21 13:50 | Emergency (ER) | payer MEDICAID, SELFPAY ==
--- NOTE | ~2021-10-21 | US_ITS ---
EXAMINATION: US VENOUS ULTRASOUND WITH DOPPLER LOWER EXTREMITY, RIGHT CLINICAL INFORMATION: Pain and edema. Swelling COMPARISON: None TECHNIQUE: Ultrasound of the deep veins is performed from the hip to the calf with compression sonography and color and pulse Doppler assessment. Spectral analysis with color-flow imaging is performed. FINDINGS: There is normal venous compression and respiratory variation and augmented flow. The visualized common femoral vein, superficial femoral vein, profunda femoral vein, popliteal vein, and the trifurcation region shows no evidence of deep venous thrombosis. There is no significant popliteal fossa cyst. If the patient's symptoms persist, followup ultrasound in 5 days 7 days might be of value to exclude proximal propagation from a non-visualized calf vein. US/US venous duplex LE RT IMPRESSION: No DVT demonstrated in the right lower extremity.
[2021-10-21 16:03] VITALS: BP 123/72; PULSE 73; RESP 16; TEMP 36.3; O2SAT 98; BMI 23.0
--- NOTE | 2021-10-21 16:13 | ED.GENADULT ---
HPI - General Adult General Chief complaint: Extremity Injury, Lower Stated complaint: R leg swollen, can't walk Time Seen by Provider: 10/21/21 14:49 Source: patient Mode of arrival: ambulatory Limitations: no limitations History of Present Illness HPI narrative: Patient is a 31 year old male presenting to the emergency department today with right foot pain. Patient states that when he steps on the ball of his right foot, he has pain that radiates up the lateral aspect of his right foot. Patient denies any dizziness, lightheadedness, abdominal pain, nausea, vomiting, fever, chills, blurry vision, double vision, loss of vision, chest pain, difficulty breathing, shortness of breath, back pain, night sweats, pain with urination, increased urinary frequency, increased urinary urgency, blood in his urine or stool, syncope or a near syncopal episode, recent trauma or falls, bowel incontinence, bladder incontinence, bowel retention, bladder retention, or any other complaints at this time. Onset (ago): week(s) (1) Location: right and lower extremity (right foot pain) Severity: mild Severity scale (1-10): 3 Quality: dull Relieving factors: none Exacerbating factors: movement Associated symptoms: denies other symptoms Treatments prior to arrival: none Related Data Previous Rx's Medication Instructions Recorded albuterol sulfate 2.5 mg (3 mL) inhalation Q4-6H PRN 09/20/20 shortness of breath or wheezing #180 mL albuterol sulfate 90 mcg/actuation 2 puff inhalation Q6H PRN 09/20/20 aerosol inhaler (Proventil HFA) shortness of breath or wheezing #8.5 grams fluticasone furoate 200 1 puff inhalation RDAILY #1 ea 07/08/21 mcg-vilanterol 25 mcg/dose inhalation powder (Breo Ellipta) prednisone 20 mg tablet 40 mg PO DAILY #6 tabs 07/08/21 tiotropium bromide 18 mcg capsule 1 puff inhalation RDAILY #1 ea 07/08/21 with inhalation device (Spiriva with HandiHaler) Allergies Allergy/AdvReac Type Severity Reaction Status Date / Time No Known Allergies Allergy Unknown unknown Verified 09/19/20 21:54 [NO KNOWN ALLERGIES] Review of Systems Constitutional: Constitutional: Reports no additional constitutional complaints, Denies chills, Denies fever(s) and Denies night sweats Eyes: Eyes: Reports no additional eye complaints, Denies blurry vision, Denies change in vision, Denies diplopia, Denies eye discharge, Denies loss of vision and Denies eye pain ENT: Denies dizziness Cardiovascular: Cardiovascular: Reports no additional cardiovascular complaints, Denies chest pain, Denies lightheadedness, Denies Loss of Consciousness and Denies dyspnea Respiratory: Respiratory: Reports no additional respiratory complaints and Denies dyspnea Gastrointestinal: Gastrointestinal: Reports no additional gastrointestinal complaints, Denies abdominal pain, Denies melena, Denies hematochezia, Denies change in bowel habits and Denies change in stool character Genitourinary: Genitourinary: Reports no additional male genitourinary complaints, Denies hematuria, Denies oliguria, Denies difficulty urinating, Denies dysuria, Denies urinary frequency, Denies urinary hesitancy, Denies urinary incontinence and Denies urinary urgency Musculoskeletal: Musculoskeletal: Reports no additional musculoskeletal complaints, Denies numbness and Denies tingling Comments: right foot pain Neurologic: Denies dizziness, Denies loss of vision, Denies numbness and Denies tingling Psychiatric: Psychiatric: Reports no additional psychiatric complaints Endocrine: Endocrine: Reports no additional endocrine complaints Hematologic/Lymphatic: Hematologic/Lymphatic: Reports no additional hematologic/lymphatic complaints Allergic/Immunologic: Allergic/Immunologic: Reports no additional allergic/immunologic complaints PMFSH Past Medical History Attestation statement: The following information was validated with the patient. Source: old records reviewed Medical History Asthma Social History Social History Alcohol intake: unknown Patient Tobacco Use Status: Never used Tobacco Substance Use Type: Marijuana Advance Directives: No Advance Directives Information Provided: No service: No Current occupational status: unemployed Physical Exam ED Vital Signs: Vital Signs - 24 hr 10/21/21 16:03 Temperature 97.4 F Pulse Rate 73 Respiratory Rate 16 Blood Pressure 123/72 Pulse Oximetry 98 Oxygen Delivery Method Room Air BMI result Body Mass Index 23.0 Const General: cooperative, no acute distress, alert and awake Nutritional Appearance: well nourished Orientation/consciousness: patient oriented x3 Limitations: no limitations HENMT Head: Yes normal to inspection and Yes atraumatic Ears: hearing grossly normal bilaterally and external ears normal General nose exam: Normal external nose present, no nasal discharge noted and no epistaxis Face and sinus: Yes normal facial exam, No abrasion and No laceration Mouth: Normal oral and palatal mucosa present, no drooling and no muffled voice Eyes General: appearance normal, both eyes and all related structures Periorbital: periorbital findings normal Eyelids: Yes eyelids normal Conjunctivae: conjunctivae normal Pupils: Equal, round and reactive pupils present EOM: EOMs intact bilaterally Neck Neck: Yes normal visual inspection, Yes full ROM and Yes no lymphadenopathy Chest Chest palpation & inspection: normal inspection of the chest Resp Effort & Inspection: normal respiratory effort and able to speak in complete sentences Auscultation: clear to auscultation bilaterally Cardio Rate: regular rate Rhythm: regular rhythm GI Inspection: Yes normal to inspection Neuro General: patient oriented x3 and moves all extremities Cranial nerves: Yes Equal, round and reactive pupils present Cognition (Neuro): normal cognition Motor exam (neuro): 5/5 motor strength present throughout Sensory Exam: Normal double simultaneous stimulation for sensation Coordination: [id number] test normal Extrem General: Yes normal to inspection, Yes full ROM and Yes capillary refill normal Psych Appearance: grossly normal Mental Status: mental status grossly normal Affect: normal affect Attitude: cooperative Thought process: Normal thought process present Thought content: Normal thought content present Insight: Good insight present (Psych) Medical Decision Making MDM Narrative Medical decision making narrative: Patient is a 31 year old male presenting to the emergency department today with right foot pain. Patient's physical exam was unremarkable. Patient's blood work was unremarkable. Patient's right lower leg US showed no acute process. I explained my physical exam findings as well as all test results to the patient. I answered all questions asked by the patient. I stressed the importance of the patient taking his medication as prescribed. I stressed the importance of the patient following up with his primary care provider. I stressed the importance of the patient returning to the emergency department immediately if his symptoms were to worsen or if he were to develop any dizziness, shortness of breath, difficulty breathing, chest pain, blurry vision, loss of vision, nausea, vomiting, abdominal pain, fever, chills, back pain, or any other complaints. Patient verbalized agreement and understanding with this treatment plan and discharge. Differential Diagnosis Differential Diagnosis: matatarsalgia Medical Records Medical records reviewed: Yes I reviewed the patient's medical records. Lab Data Lab results reviewed: Yes I reviewed the patient's lab results. Result diagrams: 10/21/21 16:09 10/21/21 16:08 Labs: Lab Results 10/21/21 Range/Units 16:09 WBC 8.6 (4.8-10.8) X10*3/uL RBC 5.49 (4.60-5.80) X10*6/uL Hgb 14.8 (14.0-18.0) g/dl Hct 45.7 (42.0-52.0) % MCV 83.2 (80.0-98.0) fL MCH 27.0 (27.0-33.0) pg MCHC 32.4 (31.0-36.0) g/dl RDW 13.7 (11.0-16.0) % Plt Count 247 (160-400) X10*3/uL MPV 11.3 (9.4-12.4) fL Immature Gran % (Auto) 0.3 (0.0-0.4) % Neut % (Auto) 83.7 H (45-73) % Lymph % (Auto) 10.9 L (20-40) % Kinney % (Auto) 5.0 (2-11) % Eos % (Auto) 0.0 (0-4) % Baso % (Auto) 0.1 (0-2) % Lymph # (Auto) 0.9 L (1.2-4.9) X10*3/uL Kinney # (Auto) 0.4 (0.1-1.2) X10*3/uL Eos # (Auto) 0.0 (0.0-0.4) X10*3/uL Baso # (Auto) 0.0 (0.0-0.2) X10*3/uL Abs Immat Gran (auto) 0.03 (0.00-0.03) X10*3/uL Absolute Neuts (auto) 7.2 (2.0-8.3) x10*3/uL Absolute Nucleated RBC 0.000 (0.0-0.012) X10*3/uL Nucleated RBC % (auto) 0.0 (0.0-0.2) /100WBC Imaging Data Venous US: Attestation: I personally reviewed and interpreted this imaging study as follows: My impression: No acute process. Radiologist's impression: EXAMINATION:? US VENOUS ULTRASOUND WITH DOPPLER LOWER EXTREMITY, RIGHT CLINICAL INFORMATION:? Pain and edema. Swelling COMPARISON:? None TECHNIQUE: Ultrasound of the deep veins is performed from the hip to the calf with compression sonography and color and pulse Doppler assessment. Spectral analysis with color-flow imaging is performed. FINDINGS: There is normal venous compression and respiratory variation and augmented flow. The visualized common femoral vein, superficial femoral vein, profunda femoral vein, popliteal vein, and the trifurcation region shows no evidence of deep venous thrombosis. ? There is no significant popliteal fossa cyst. If the patient's symptoms persist, followup ultrasound in 5 days 7 days might be of value to exclude proximal propagation from a non-visualized calf vein. US/US venous duplex LE RT IMPRESSION: No DVT demonstrated in the right lower extremity. Dictated By: Osmin Ruff MD Signed By: Electronically signed by Osmin Ruff MD 10/21/21 9360 Discharge Plan Discharge Clinical Impression: Metatarsalgia Patient Disposition: Home, Self-Care Instructions: Metatarsalgia (DC) Additional Instructions: Follow up with your primary care provider and a counselor dormitory. Return to the emergency department immediately if your symptoms worsen or if you develop any dizziness, shortness of breath, difficulty breathing, chest pain, blurry vision, loss of vision, nausea, vomiting, abdominal pain, fever, chills, back pain, or any other complaints. Prescriptions: No Action albuterol sulfate 2.5 mg /3 mL (0.083 %) solution for nebulization 2.5 mg inhalation Q4-6H PRN (Reason: shortness of breath or wheezing) Qty: 180 0RF albuterol sulfate [Proventil HFA] 90 mcg/actuation HFA aerosol inhaler 2 puff inhalation Q6H PRN (Reason: shortness of breath or wheezing) Qty: 8.5 2RF Spiriva with HandiHaler 18 mcg Capsule, W/Inhalation Device 1 puff inhalation RDAILY Qty: 1 0RF Breo Ellipta 200-25 mcg/dose Blister With Device 1 puff inhalation RDAILY Qty: 1 0RF prednisone 20 mg tablet 40 mg PO DAILY Qty: 6 0RF Referrals: [facility] [Provider Group] (Call to establish and follow up with a primary care provider. If you have a primary care provider, please follow up with them. ) [facility] Primary Care, Leanne [Provider Group] (Call to establish and follow up with a primary care provider. If you have a primary care provider, please follow up with them. ) [facility] Primary Care,David [Provider Group] (Call to establish and follow up with a primary care provider. If you have a primary care provider, please follow up with them. ) Stanley Dueñas DPM [Physician] - (Call to follow up and establish with a counselor dormitory. ) Print Language: Swazi
[2021-10-21 16:41] LABS: MANUAL DIFF FLAG NO
[2021-10-21 16:43] LABS: Basophils Percent Auto 0.1 % (0-2); Hematocrit 45.7 % (42.0-52.0); Hemoglobin 14.8 g/dl (14.0-18.0); Imm Gran Abs Auto 0.03 X10*3/uL (0.00-0.03); Imm Gran Pct Auto 0.3 % (0.0-0.4); Lymphocytes Absolute Auto 0.9 X10*3/uL (1.2-4.9); Lymphocytes Percent Auto 10.9 % (20-40); Mean Corpuscular HGB Conc 32.4 g/dl (31.0-36.0); Mean Corpuscular Volume 83.2 fL (80.0-98.0); Mean Platelet Volume 11.3 fL (9.4-12.4); Monocytes Absolute Auto 0.4 X10*3/uL (0.1-1.2); Neutrophils Absolute Auto 7.2 x10*3/uL (2.0-8.3); Neutrophils Percent Auto 83.7 % (45-73); Platelet Count 247 X10*3/uL (160-400); Red Blood Count 5.49 X10*6/uL (4.60-5.80); Red Cell Distribution Width 13.7 % (11.0-16.0); White Blood Count 8.6 X10*3/uL (4.8-10.8)
[2021-10-21 17:34] LABS: Anion Gap 16 (12-20); Blood Urea Nitrogen 14 mg/dL (9-16); Calcium 10.5 mg/dL (8.4-10.2); Carbon Dioxide 27 mmol/L (22-29); Chloride 100 mmol/L (96-108); Creatinine Clr Calc Pharmacy 72.5; Estimated Glomerular Filt Rate > 60; Glucose Random 112 mg/dL (60-115); Potassium 4.9 mmol/L (3.3-5.1); Sodium 138 mmol/L (135-145)
== END 2021-10-21 17:19 | disposition home or self-care (01) ==
PROVIDERS: Emergency Medicine; Emergency Provider Emergency Medicine Emergency Medical Services
DX: M77.41 Metatarsalgia, right foot (principal); M79.671 Pain in right foot
CPT/HCPCS: 36415; 80048; 85025; 93971; 99282; 99284

== ENCOUNTER 2021-11-02 11:00 | Emergency (ER) | payer MEDICAID, SELFPAY ==
--- NOTE | ~2021-11-02 | XR_ITS ---
EXAMINATION: XR ANKLE, LEFT CLINICAL INFORMATION: Left ankle pain and swelling COMPARISON: 01/30/2020 TECHNIQUE: AP, lateral, and mortise views of the left ankle. FINDINGS: No acute fracture. The ankle mortise is preserved. There are small chronic ossifications at the tip of the medial and lateral malleoli presumably due to a remote injury. XR/XR ankle LT min 3V IMPRESSION: No acute abnormality.
[2021-11-02 11:21] VITALS: BP 111/68; PULSE 74; RESP 18; TEMP 36.8; O2SAT 97; BMI 21.9
--- NOTE | 2021-11-02 14:21 | ED_ITS ---
HPI - Extremity Problem General Chief complaint: Extremity Problem Stated complaint: left ankle pain Time Seen by Provider: 11/02/21 13:36 Source: patient Mode of arrival: ambulatory History of Present Illness HPI Narrative: 31-year-old male with past medical history of asthma presenting to the ED complaining of left ankle pain and swelling since yesterday. States he is unable to ambulate secondary to the pain. Reports may have twisted ankle while at work yesterday as does a lot of running around at [employer]. Denies direct injury/trauma or fall, numbness, tingling, weakness, fever, chills, redness Complaint: extremity pain and extremity swelling Onset (ago): day(s) Pain Consistency: constant Location: left Related Data Previous Rx's Medication Instructions Recorded albuterol sulfate 2.5 mg (3 mL) inhalation Q4-6H PRN 09/20/20 shortness of breath or wheezing #180 mL albuterol sulfate 90 mcg/actuation 2 puff inhalation Q6H PRN 09/20/20 aerosol inhaler (Proventil HFA) shortness of breath or wheezing #8.5 grams fluticasone furoate 200 1 puff inhalation RDAILY #1 ea 07/08/21 mcg-vilanterol 25 mcg/dose inhalation powder (Breo Ellipta) prednisone 20 mg tablet 40 mg PO DAILY #6 tabs 07/08/21 tiotropium bromide 18 mcg capsule 1 puff inhalation RDAILY #1 ea 07/08/21 with inhalation device (Spiriva with HandiHaler) Allergies Allergy/AdvReac Type Severity Reaction Status Date / Time No Known Allergies Allergy Unknown unknown Verified 11/02/21 11:21 [NO KNOWN ALLERGIES] Review of Systems Review of Systems: Constitutional: No Fever, No Chills ENT/Mouth: No Ear Pain, No Nasal Congestion, No sore throat, No Rhinorrhea, No Swallowing Difficulty Cardiovascular: No Chest Pain, No SOB Respiratory: No Cough, No Sputum Gastrointestinal: No Nausea, No Vomiting, No Abdominal pain Genitourinary: No Dysuria, No Urinary Frequency, No Hematuria Musculoskeletal: + joint pain, No Myalgias, + Joint Swelling Skin: No Skin Lesions, No rash Neuro: No Weakness, No Numbness, No Paresthesias Yes all other systems are reviewed and are negative [facility] Past Medical History Attestation statement: The following information was validated with the patient. Medical History Asthma Social History Social History Alcohol intake: unknown Patient Tobacco Use Status: Never used Tobacco Substance Use Type: Marijuana Advance Directives: No Advance Directives Information Provided: No service: No Current occupational status: unemployed Physical Exam Vital Signs: Vital Signs: Last Vital Signs Temp 98.3 F 11/02/21 11:21 Pulse 74 11/02/21 11:21 Resp 18 11/02/21 11:21 BP 111/68 11/02/21 11:21 Pulse Ox 97 11/02/21 11:21 O2 Del Method 11/02/21 11:21 BMI result Body Mass Index 21.9 Const: General: cooperative, healthy appearing and no acute distress Orientation/consciousness: patient oriented x3 Limitations: no limitations HEENT: Head: Yes normal to inspection and Yes atraumatic Ears: hearing grossly normal bilaterally General nose exam: Normal external nose present Face and sinus: Yes normal facial exam Eyes: General: appearance normal, both eyes and all related structures EOM: EOMs intact bilaterally Neck: Neck: Yes normal visual inspection and Yes no meningeal signs Resp: Effort & Inspection: normal respiratory effort and no respiratory distress Cardio: Rate: regular rate Heart sounds: S1 normal heart sound present and S2 normal heart sound present Peripheral pulses: dorsalis pedis present Skin: Rashes: no rashes Wounds: no wounds Neuro: General: patient oriented x3, tone normal and no meningeal signs Gait exam (Neuro): Normal gait present Extrem: Other: Left ankle and mild lateral malleolar swelling and tenderness to palpation. No erythema, ecchymosis, crepitus. Neurovascular intact distally. Course Course Course Narrative: XR ankle LT min 3V IMPRESSION: No acute abnormality. >> patient placed in air cast and supplied with crutches. Recommended orthopedic follow-up MDM - Extremity (Nontraumatic) MDM Narrative Medical decision making narrative: 31-year-old male with past medical history of asthma presenting to the ED complaining of left ankle pain and swelling since yesterday. On exam vital signs stable, NAD, nontoxic appearing, physical exam as above. Concern for ankle sprain, rule out fracture. Low suspicion for septic joint/arthritis Plan: X-rays Medical Records Attestation: I reviewed the patient's medical records. Lab Data Attestation: I reviewed the patient's lab results. Procedures Orthopedic Splinting/Casting Injury #1: Side: left Lower Extremity Injury Location: ankle Lower Extremity Immobilizer: AirCast Other Orthopedic Equipment: crutches Discharge Plan Discharge Clinical Impression: Ankle sprain Prescriptions: No Action albuterol sulfate 2.5 mg /3 mL (0.083 %) solution for nebulization 2.5 mg inhalation Q4-6H PRN (Reason: shortness of breath or wheezing) Qty: 180 0RF albuterol sulfate [Proventil HFA] 90 mcg/actuation HFA aerosol inhaler 2 puff inhalation Q6H PRN (Reason: shortness of breath or wheezing) Qty: 8.5 2RF Spiriva with HandiHaler 18 mcg Capsule, W/Inhalation Device 1 puff inhalation RDAILY Qty: 1 0RF Breo Ellipta 200-25 mcg/dose Blister With Device 1 puff inhalation RDAILY Qty: 1 0RF prednisone 20 mg tablet 40 mg PO DAILY Qty: 6 0RF
[2021-11-02] MEDS: Ketorolac Tromethamine 30 MG/ML VIAL IM (14:29)
== END 2021-11-02 14:50 | disposition home or self-care (01) ==
PROVIDERS: Emergency Provider Emergency Medicine; PCP Internal Medicine
DX: S93.402A Sprain of unspecified ligament of left ankle, initial encounter (principal); X50.1XXA Overexertion from prolonged static or awkward postures, initial encounter; Y93.89 Activity, other specified; Y92.511 Restaurant or cafe as the place of occurrence of the external cause; Y99.0 Civilian activity done for income or pay
CPT/HCPCS: 73610; 96372; 99283; 99284; J1885

== ENCOUNTER 2021-12-28 03:46 | Observation (INO) | payer MEDICAID, SELFPAY ==
[2021-12-28] VITALS (12 sets, daily range): BP systolic 111–143; BP diastolic 56–102; PULSE 69–92; RESP 18–26; TEMP 36.3–37.1; O2SAT 94–99; BMI 24.5
--- NOTE | ~2021-12-28 | XR_ITS ---
EXAMINATION: XR CHEST CLINICAL INFORMATION: Dyspnea COMPARISON: 07/07/2021 TECHNIQUE: Frontal view of the chest was obtained. FINDINGS: The lungs are clear with no focal consolidation. No evidence of pneumothorax, pulmonary edema, or pleural effusions. The cardiomediastinal silhouette is unremarkable. No acute osseous findings. XR/XR chest 1V IMPRESSION: No acute cardiopulmonary findings.
--- NOTE | 2021-12-28 03:52 | ED.ASTHMA ---
HPI - Asthma General Chief Complaint: Asthma Stated Complaint: ASTHMA EXACERBATION Time Seen by Provider: 12/28/21 03:50 Source: patient and old records reviewed Mode of arrival: EMS Limitations: no limitations History of Present Illness MD complaint: asthma attack , shortness of breath and wheezing Onset (ago): hour(s) (2) Severity: severe Associated symptoms: none and dry cough Asthma History: childhood onset Treatments Prior to Arrival: inhaled bronchodilator and oxygen Related Data Previous Rx's Medication Instructions Recorded albuterol sulfate 2.5 mg/3 mL 2.5 mg (3 mL) inhalation Q4-6H PRN 09/20/20 (0.083 %) solution for nebulization shortness of breath or wheezing #180 mL albuterol sulfate 90 mcg/actuation 2 puff inhalation Q6H PRN 09/20/20 aerosol inhaler (Proventil HFA) shortness of breath or wheezing #8.5 grams fluticasone furoate 200 1 puff inhalation RDAILY #1 ea 07/08/21 mcg-vilanterol 25 mcg/dose inhalation powder (Breo Ellipta) prednisone 20 mg tablet 40 mg PO DAILY #6 tabs 07/08/21 tiotropium bromide 18 mcg capsule 1 puff inhalation RDAILY #1 ea 07/08/21 with inhalation device (Spiriva with HandiHaler) acetaminophen 500 mg tablet 500 mg PO Q6H PRN fever or pain 11/02/21 (Tylenol Extra Strength) #14 tabs naproxen 500 mg tablet 500 mg PO BID PRN pain 10 days #20 11/02/21 tabs Allergies Allergy/AdvReac Type Severity Reaction Status Date / Time No Known Allergies Allergy Unknown unknown Verified 11/02/21 11:21 [NO KNOWN ALLERGIES] Review of Systems Review of Systems: Constitutional : No Fever, No Chills ENT/Mouth : No Hoarseness, No sore throat, No Rhinorrhea Eyes: No Redness, No Discharge, No Vision Changes Cardiovascular : No Chest Pain, positive SOB, positive Dyspnea on Exertion, No Edema Respiratory : positive Cough, No Sputum, positive Wheezing, Gastrointestinal : No Nausea, No Vomiting, No Diarrhea, No abdominal Pain Genitourinary : No Dysuria, No Hematuria Musculoskeletal : No joint pain, No Myalgias Skin : No rash Neuro : No Weakness, No Numbness, No Headache Psych : No anxiety, depression Heme/Lymph: No Bruising, No Bleeding Endocrine : No Polyuria, No Polydipsia All other systems reviewed and are negative [facility] Past Medical History Attestation statement: The following information was validated with the patient. Medical History Asthma Social History Social History Alcohol intake: unknown Patient Tobacco Use Status: Never used Tobacco Substance Use Type: Marijuana Advance Directives: No Advance Directives Information Provided: No service: No Current occupational status: unemployed Physical Exam Vital Signs: Vital Signs: Last Vital Signs Temp 97.9 F 12/28/21 04:12 Pulse 84 12/28/21 06:00 Resp 21 H 12/28/21 06:00 BP 143/102 H 12/28/21 04:12 Pulse Ox 98 12/28/21 04:12 O2 Del Method 12/28/21 04:12 Oxygen Flow Rate 7 12/28/21 04:12 BMI result Body Mass Index 24.5 Appearance: Alert. Oriented X3. Mild acute distress. Eyes: Pupils equal, round and reactive to light. ENT: Pharynx normal. Neck: Normal inspection. Neck supple. CVS: Normal heart rate and rhythm. Pulses normal. Respiratory: Mild respiratory distress - tachypnea and retractions. Breath sounds diffuse exp and insp wheezes Abdomen: Soft and nontender. Skin: Skin warm and dry. Normal skin color. Normal skin turgor. Extremities: No lower extremity edema. No calf ttp Neuro: Oriented X 3. No motor deficit. No sensory deficit. Course Course Course Narrative: Cr not far from baseline hovers around 1.2 to 1.3 IVF are ordered. repeat 5mg neb ordered improved no hypoxia still very tight and wheezy will admit for further workup - nebs MDM - Asthma MDM Narrative Medical decision making narrative: 31 yo male with hx of asthma no prior intubations but has been hospitalized several times. Comes in with exacerbation getting triggered at work. At this time he will need labs, COVID swab, CXR, hour long 10mg neb, IV steroids and IV magnesium. Dispo per results and clinical improvement. Lab Data Result diagrams: 12/28/21 04:08 12/28/21 04:08 Labs: Lab Results 12/28/21 12/28/21 12/28/21 Range/Units 04:08 04:08 04:08 WBC 12.4 H (4.8-10.8) X10*3/uL RBC 5.43 (4.60-5.80) X10*6/uL Hgb 14.6 (14.0-18.0) g/dl Hct 44.3 (42.0-52.0) % MCV 81.6 (80.0-98.0) fL MCH 26.9 L (27.0-33.0) pg MCHC 33.0 (31.0-36.0) g/dl RDW 13.8 (11.0-16.0) % Plt Count 237 (160-400) X10*3/uL MPV 10.6 (9.4-12.4) fL Immature Gran % (Auto) 0.2 (0.0-0.4) % Neut % (Auto) 69.2 (45-73) % Lymph % (Auto) 18.4 L (20-40) % [place] % (Auto) 6.6 (2-11) % Eos % (Auto) 5.1 H (0-4) % Baso % (Auto) 0.5 (0-2) % Lymph # (Auto) 2.3 (1.2-4.9) X10*3/uL [place] # (Auto) 0.8 (0.1-1.2) X10*3/uL Eos # (Auto) 0.6 H (0.0-0.4) X10*3/uL Baso # (Auto) 0.1 (0.0-0.2) X10*3/uL Abs Immat Gran (auto) 0.03 (0.00-0.03) X10*3/uL Absolute Neuts (auto) 8.6 H (2.0-8.3) x10*3/uL Absolute Nucleated RBC 0.000 (0.0-0.012) X10*3/uL Nucleated RBC % (auto) 0.0 (0.0-0.2) /100WBC Sodium 140 (135-145) mmol/L Potassium 4.5 (3.3-5.1) mmol/L Chloride 102 (96-108) mmol/L Carbon Dioxide 26 (22-29) mmol/L Anion Gap 17 (12-20) BUN 14 (9-16) mg/dL Creatinine 1.52 H (0.5-1.4) mg/dL Estim Creat Clear Calc 54.3 Estimated GFR 54 Random Glucose 97 (60-115) mg/dL Calcium 9.7 D (8.4-10.2) mg/dL Total Creatine Kinase 253 H (38-174) U/L COVID-19 (JOSE) Negative (Negative) COVID-19 Clin Com See Note Critical Care Time Critical Care Time Critical Care Time: Yes Total Critical Care Time: 60 Attestation: two repeat hour long nebs, IV steroids, IV magnesium, repeat assessments I attest to this time spent taking care of the patient Discharge Plan Discharge Clinical Impression: Asthma Patient Disposition: Admitted As Inpatient Prescriptions: No Action albuterol sulfate 2.5 mg /3 mL (0.083 %) solution for nebulization 2.5 mg inhalation Q4-6H PRN (Reason: shortness of breath or wheezing) Qty: 180 0RF albuterol sulfate [Proventil HFA] 90 mcg/actuation HFA aerosol inhaler 2 puff inhalation Q6H PRN (Reason: shortness of breath or wheezing) Qty: 8.5 2RF Spiriva with HandiHaler 18 mcg Capsule, W/Inhalation Device 1 puff inhalation RDAILY Qty: 1 0RF Breo Ellipta 200-25 mcg/dose Blister With Device 1 puff inhalation RDAILY Qty: 1 0RF prednisone 20 mg tablet 40 mg PO DAILY Qty: 6 0RF acetaminophen [Tylenol Extra Strength] 500 mg tablet 500 mg PO Q6H PRN (Reason: fever or pain) Qty: 14 0RF naproxen 500 mg tablet 500 mg PO BID PRN (Reason: pain) 10 Days Qty: 20 0RF
[2021-12-28] MEDS: methylPREDNISolone Sod Succ 125 MG/2 ML VIAL IVPUSH (04:09)
[2021-12-28] MEDS: 0.9 % Sodium Chloride 1,000 ML 999 ML IV (04:10)
[2021-12-28] MEDS: Magnesium Sulfate/H2O 2 GM/50 ML PIGGYBACK IV (04:10)
[2021-12-28] MEDS: Albuterol Sulfate 7.5 MG, Albuterol Sulfate (0.083%) 2.5 MG 10 MG INHALE (04:10)
[2021-12-28 04:19] LABS: MANUAL DIFF FLAG NO
[2021-12-28 04:20] LABS: Basophils Absolute Auto 0.1 X10*3/uL (0.0-0.2); Basophils Percent Auto 0.5 % (0-2); Eosinophils Absolute Auto 0.6 X10*3/uL (0.0-0.4); Eosinophils Percent Auto 5.1 % (0-4); Hematocrit 44.3 % (42.0-52.0); Hemoglobin 14.6 g/dl (14.0-18.0); Imm Gran Abs Auto 0.03 X10*3/uL (0.00-0.03); Imm Gran Pct Auto 0.2 % (0.0-0.4); Lymphocytes Absolute Auto 2.3 X10*3/uL (1.2-4.9); Lymphocytes Percent Auto 18.4 % (20-40); Mean Corpuscular Hemoglobin 26.9 pg (27.0-33.0); Mean Corpuscular Volume 81.6 fL (80.0-98.0); Mean Platelet Volume 10.6 fL (9.4-12.4); Monocytes Absolute Auto 0.8 X10*3/uL (0.1-1.2); Monocytes Percent Auto 6.6 % (2-11); Neutrophils Absolute Auto 8.6 x10*3/uL (2.0-8.3); Neutrophils Percent Auto 69.2 % (45-73); Platelet Count 237 X10*3/uL (160-400); Red Blood Count 5.43 X10*6/uL (4.60-5.80); Red Cell Distribution Width 13.8 % (11.0-16.0); White Blood Count 12.4 X10*3/uL (4.8-10.8)
[2021-12-28 04:33] LABS: Anion Gap 17 (12-20); Blood Urea Nitrogen 14 mg/dL (9-16); Calcium 9.7 mg/dL (8.4-10.2); Carbon Dioxide 26 mmol/L (22-29); Chloride 102 mmol/L (96-108); Creatinine Clr Calc Pharmacy 54.3; Estimated Glomerular Filt Rate 54; Glucose Random 97 mg/dL (60-115); Potassium 4.5 mmol/L (3.3-5.1); Sodium 140 mmol/L (135-145)
[2021-12-28 04:52] LABS: COVID-19 Test Negative (Negative)
[2021-12-28] MEDS: Albuterol Sulfate 2.5 MG, Albuterol Sulfate (0.083%) 2.5 MG 5 MG INHALE (05:59)
--- NOTE | 2021-12-28 10:40 | PHA.MEDREC ---
Pharmacy Consult ? Medication Reconciliation Pharmacy has completed the medication reconciliation.
[2021-12-28] MEDS: Albuterol/Iprat 2.5/0.5MG 3 ML AMPUL.NEB INHALE ×3 (11:12→20:31)
[2021-12-28] MEDS: Acetaminophen 325 MG TABLET 650 MG PO (11:38)
--- NOTE | 2021-12-28 11:47 | PM.IMHP ---
History of Present Illness Date of Service: 12/28/21 Attending physician on admission: Terence Campbell Chief Complaint: asthma exacerbation 31 year old male with history moderate persistent asthma presented to the ED this am for shortness of breath and wheezing ongoing for several days and worsened while at work at [employer]. Has been hospitalized several times without intubation, last hospitalization about 1 year ago. Has been using albuterol inhaler multiple times daily along with flovent as prescribed. No hypoxia with oximetry ranging 95-98% since arrival. Has received labuterol updraft, duoneb, 2g Mg, 125mg solumdel IV, and IVF since arrival but stilll has coarse lungs sounds and wheezing. Mild leukocytosis 12.4, denies recent steroid use. Creat slightly elevated 1.52, has received IVF. CXR negative. Denies recent illness. COVID-19 negative. Denies fevers, chills, congestion, cough, nausea, vomiting, diarrhea. Reporting posterior chest pain with inspiration. Review of Systems Review of Systems: General: No fevers, malaise, unintentional weight loss HEENT: No sinus/nasal congestion, rhinorrhea, sore throat Cardiovascular: No chest pain, palpitations, or leg edema Respiratory: + shortness of breath, wheezing. No cough GI: No abdominal pain, nausea, vomiting, diarrhea, constipation, melena, hematochezia MSK: +pleuritic chest pain Neuro: No headaches, weakness, paresthesias Skin: No rashes or lesions [facility] Medical History Asthma Family History Mother Asthma Father Asthma Social History Alcohol intake: unknown Patient Tobacco Use Status: Never used Tobacco Substance Use Type: Marijuana Advance Directives: No Advance Directives Information Provided: No service: No Current occupational status: unemployed Meds Allergies Allergy/AdvReac Type Severity Reaction Status Date / Time No Known Allergies Allergy Unknown unknown Verified 11/02/21 11:21 [NO KNOWN ALLERGIES] Active Medications: Current Medications Acetaminophen (Acetaminophen 325 Mg Tablet) 650 mg PO Q6H PRN PRN Reason: Pain, Mild (Pain Scale 1-3) Last Admin: 12/28/21 11:38 Dose: 650 mg Albuterol Sulfate (Albuterol Sulfate (0.083%) 2.5 Mg/3 Ml Vial.Neb) 2.5 mg INHALE Q4H PRN PRN Reason: Shortness of Breath/Wheezing Albuterol/Ipratropium (Albuterol/Iprat 2.5/0.5mg 3 Ml Ampul.Neb) 3 ml INHALE RQ4H WHILE AWAKE [facility] Last Admin: 12/28/21 11:12 Dose: 3 ml Enoxaparin Sodium (Enoxaparin Sodium 40 Mg/0.4 Ml Syringe) 40 mg SUBCUT Q24H [facility] Last Admin: 12/28/21 11:07 Dose: Not Given Ondansetron HCl (Ondansetron Hcl 4 Mg/2 Ml Vial) 4 mg IVPUSH Q8H PRN PRN Reason: Nausea and Vomiting Pharmacy Consult (Consult Rx Perform Med Rec) 1 each MISCELLANE ONCE PRN PRN Reason: Consult order Prednisone (Prednisone 20 Mg Tablet) 40 mg PO DAILY [facility] Sodium Chloride (0.9 % Sodium Chloride Flush 3 Ml Syringe) 3 ml IVFLUSH QSHIFT [facility] Home Medications Medication Instructions Recorded Confirmed Last Taken Type fluticasone propionate 110 2 puff inhalation BID 12/28/21 12/28/21 Unknown History mcg/actuation HFA aerosol inhaler (Flovent HFA) Physical Exam Vital Signs and Narrative: Vital Signs: Last Vital Signs Temp 97.5 F 12/28/21 11:34 Pulse 92 12/28/21 11:34 Resp 20 12/28/21 11:34 BP 117/68 12/28/21 11:34 Pulse Ox 95 12/28/21 11:34 O2 Del Method 12/28/21 11:34 Oxygen Flow Rate 7 12/28/21 04:12 BMI result Body Mass Index 24.5 Constitutional - Awake and Alert, No apparent distress Eyes - PERRLA, EOMI Cardiovascular - S1S2, RRR, No edema Respiratory - Normal lung expansion, Normal respiratory effort, No respiratory distress, CTA bilaterally Chest: ttp right lower chest Gastrointestinal - NT / ND; +BS; No rebound or guarding Extremities - no calf tenderness bilaterally, no swelling Skin - Warm/Dry Neurological - Alert & oriented x3, No focal deficit Psychological - Appropriate affect Results Labs CBC and Chem 7: 12/28/21 04:08 12/28/21 04:08 Labs: Laboratory Results - last 24 hr 12/28/21 12/28/21 12/28/21 04:08 04:08 04:08 MCV 81.6 MCH 26.9 L MCHC 33.0 RDW 13.8 Plt Count 237 MPV 10.6 Immature Gran % (Auto) 0.2 Neut % (Auto) 69.2 Lymph % (Auto) 18.4 L [place] % (Auto) 6.6 Eos % (Auto) 5.1 H Baso % (Auto) 0.5 Lymph # (Auto) 2.3 [place] # (Auto) 0.8 Eos # (Auto) 0.6 H Baso # (Auto) 0.1 Abs Immat Gran (auto) 0.03 Absolute Neuts (auto) 8.6 H Absolute Nucleated RBC 0.000 Nucleated RBC % (auto) 0.0 Anion Gap 17 Estim Creat Clear Calc 54.3 Estimated GFR 54 Random Glucose 97 Calcium 9.7 D Total Creatine Kinase 253 H COVID-19 (JOSE) Negative COVID-19 Clin Com See Note Imaging Radiologist's Impressions: Impressions Chest X-Ray 12/28/21 04:25 IMPRESSION: No acute cardiopulmonary findings. Assessment and Plan (1) Moderate persistent allergic asthma: Status: Acute Plan 31 year old male with history moderate persistent asthma presented to the ED this am for shortness of breath and wheezing to be observed for acute asthma exacerbation. 1- Acute asthma exacerbation -REceived IV solumedrol, albuterol updraft, duoneb, and 2gm Mg in ED. CXR negative -Transition to oral prednisone to completer course upon discharge -Duonebs q4h. Albuterol neb prn -Regular diet 2-YURIY- creat 1.5 likely related to dehydration -Received IVF in ED. Encourage PO hydration -Repeat BMP AM DVT prophylaxis- lovenox Full code Quality Stroke Does the patient have a stroke diagnosis?: No VTE Prior VTE?: No VTE Risk Level:: Medical - moderate - high VTE Device Contraindication: Treatment Not Indicated VTE Drug Contraindication: N/A - Med Ordered
--- NOTE | 2021-12-28 13:57 | MHC.CM.PN ---
Met w/pt to discuss d/c planning: pt resides w/parents, works, has no DME or services. Pt states his PCP is a female provider from [facility]. He declines HCP completion, was vaccinated x 2 for Covid and will need assistance w/transportation to home. Pt has a working cell - states nobody has a car including family and friends. CM to follow
[2021-12-28] MEDS: 0.9 % Sodium Chloride Flush 3 ML SYRINGE IVFLUSH ×2 (16:02→20:13)
--- NOTE | 2021-12-28 18:27 | PC.NURSE ---
patient fro ED admitted to 370 at 18:15. Alert and oriented ,LS expiratory wheezing shilo, reports lower back pain that started yesterday 11/27. Stated that he didn't urinate since he came to the ED yesterday morning.Pt went to the bathroom now and is trying to urinate.
[2021-12-28 20:57] LABS: Amphetamine Screen Urine Not Detected (Not Detect); Barbiturates, Urine Not Detected (Not Detect); Benzodiazepines Screen Urine Not Detected (Not Detect); Cannabinoid Screen Urine Not Detected (Not Detect); Cocaine Screen Urine POSITIVE (Not Detect); Fentanyl, urine Not Detected (Not Detect); Opiate Screen Urine Not Detected (Not Detect); Phencyclidine Screen Urine Not Detected (Not Detect)
[2021-12-29 03:14] VITALS: BP 126/61; PULSE 79; RESP 18; TEMP 36.5; O2SAT 95
[2021-12-29 06:05] LABS: Anion Gap 17 (12-20); Blood Urea Nitrogen 14 mg/dL (9-16); Calcium 10.4 mg/dL (8.4-10.2); Carbon Dioxide 27 mmol/L (22-29); Chloride 101 mmol/L (96-108); Creatinine Clr Calc Pharmacy 60.7; Estimated Glomerular Filt Rate > 60; Glucose Random 84 mg/dL (60-115); Potassium 5.2 mmol/L (3.3-5.1); Sodium 140 mmol/L (135-145)
[2021-12-29] MEDS: predniSONE 20 MG TABLET 40 MG PO (07:25)
[2021-12-29] MEDS: 0.9 % Sodium Chloride Flush 3 ML SYRINGE IVFLUSH (07:27)
[2021-12-29 07:48] VITALS: BP 113/65; PULSE 88; RESP 15; TEMP 36.7; O2SAT 96
[2021-12-29] MEDS: Albuterol/Iprat 2.5/0.5MG 3 ML AMPUL.NEB INHALE ×2 (08:11→11:16)
[2021-12-29] MEDS: Fluticasone Propionate 100 MCG BLST.W.DEV 2 PUFF INHALE (08:12)
[2021-12-29 08:15] VITALS: PULSE 76; RESP 18; O2SAT 97
[2021-12-29] MEDS: Sodium Zirconium Cyclosilicate 5 GM POWD.PACK PO (09:03)
--- NOTE | 2021-12-29 09:54 | PM.DS ---
DS: Providers Provider Date of Service: 12/29/21 Date of admission: 12/28/21 10:12 Primary care physician: Unknown Physician DS: Diagnosis Discharge Diagnosis (1) Moderate persistent allergic asthma: Status: Acute (2) Asthma exacerbation: Status: Acute DS: Summary Hospital Course Hospital Course: Admission note HPI 31 year old male with history moderate persistent asthma presented to the ED this am for shortness of breath and wheezing ongoing for several days and worsened while at work at [employer]. Has been hospitalized several times without intubation, last hospitalization about 1 year ago. Has been using albuterol inhaler multiple times daily along with flovent as prescribed. No hypoxia with oximetry ranging 95-98% since arrival. Has received labuterol updraft, duoneb, 2g Mg, 125mg solumdel IV, and IVF since arrival but stilll has coarse lungs sounds and wheezing. Mild leukocytosis 12.4, denies recent steroid use. Creat slightly elevated 1.52, has received IVF. CXR negative. Denies recent illness. COVID-19 negative. Denies fevers, chills, congestion, cough, nausea, vomiting, diarrhea. Reporting posterior chest pain with inspiration. Hospital course The patient was admitted to the hospital for observation. Treated with IV steroids and bronchodilator nebulizers with good response. He was able to ambulate on room air maintaining his oxygen in 90s with no reported hypoxia. Plan to be discharged home on prednisone and to continue his Flovent inhaler and as needed rescue inhaler or nebulizer. Continue prednisone as prescribed Use Flovent inhaler twice Daily Use rescue inhaler as needed Avoid smoking Time Spent with Patient Time attestation: Total time spent providing and/or coordinating discharge services: Discharge coordination time: Less than 30 minutes Quality: Safe Use of Opioids Does Pt have an Active Cancer Diagnosis on the Problem List?: No Quality: Stroke Does the patient have a stroke diagnosis?: No Physical Exam Vital Signs: Vital Signs: Last Vital Signs Temp 98.0 F 12/29/21 07:48 Pulse 76 12/29/21 08:15 Resp 18 12/29/21 08:15 BP 113/65 12/29/21 07:48 Pulse Ox 96 12/29/21 07:48 O2 Del Method 12/29/21 07:48 Oxygen Flow Rate 7 12/28/21 04:12 BMI result Body Mass Index 24.5 Const: Other: Constitutional : Alert, oriented, not in distress Neck : Normal inspection, Supple Cardiovascular : RRR, no JVP, no lower extremity edema Respiratory : fair bilateral air entry, no crackles, minimal scattered wheezes bilaterally Gastrointestinal: soft, lax, Normal bowel sounds, Non tender Skin : Warm, Dry Neurological : Alert & oriented x3, No focal deficit , CN 2-12 within normal DS: Data Data Completed and Pending Labs on day of discharge: Laboratory Results - last 24 hr 12/28/21 12/29/21 20:30 05:08 Sodium 140 Potassium 5.2 H Chloride 101 Carbon Dioxide 27 Anion Gap 17 BUN 14 Creatinine 1.36 Estim Creat Clear Calc 60.7 Estimated GFR > 60 Random Glucose 84 Calcium 10.4 H D Urine Opiates Screen Not Detected Urine Fentanyl Screen Not Detected Ur Barbiturates Screen Not Detected Ur Phencyclidine Scrn Not Detected Ur Amphetamines Screen Not Detected U Benzodiazepines Scrn Not Detected Urine Cocaine Screen POSITIVE H U Marijuana (THC) Screen Not Detected Imaging Chest x-ray: Radiologist's impression: ITS Impressions Chest X-Ray 12/28/21 04:25 IMPRESSION: No acute cardiopulmonary findings. Discharge Plan Discharge Patient Disposition: Home, Self-Care Discharge Diagnosis: Asthma exacerbation Referrals: Physician,Unknown J [Primary Care Provider] - 1 Week Discharge Medications: New prednisone 20 mg Tablet 40 mg PO DAILY 4 Days Qty: 8 0RF Continued albuterol sulfate 2.5 mg /3 mL (0.083 %) solution for nebulization 2.5 mg inhalation Q4-6H PRN (Reason: shortness of breath or wheezing) Qty: 180 0RF albuterol sulfate [Proventil HFA] 90 mcg/actuation HFA aerosol inhaler 2 puff inhalation Q6H PRN (Reason: shortness of breath or wheezing) Qty: 8.5 2RF fluticasone propionate [Flovent HFA] 110 mcg/actuation HFA aerosol inhaler 2 puff INHALATION BID Rx Instructions: OUT OF REFILLS Discontinued prednisone 20 mg tablet 40 mg PO DAILY Qty: 6 0RF Discharge Orders: Discharge Order (Routine); Ordered 12/29/21 Ordered By: Terence Campbell Diet: Advance to usual diet Activity on Discharge: As tolerated Stand Alone Forms: Patient Portal Discharge page, Work/School Release Care Plan Goals: Read below Health Concerns: Read below Plan of Treatment: Read below Assessment: You were admitted to the hospital for evaluation of difficulty breathing. Found to have an evidence of you were admitted to the hospital for evaluation of difficulty breathing. Found to have asthma exacerbation. Treated with steroids, nebulizers with good response. Continue prednisone as prescribed Use Flovent inhaler twice Daily Use rescue inhaler as needed Avoid smoking
--- NOTE | 2021-12-29 10:06 | MHC.CM.PN ---
order for home, self care. CM acknowledged.
[2021-12-29 11:17] VITALS: PULSE 82; RESP 20; O2SAT 94
[2021-12-29 11:20] VITALS: BP 123/71; PULSE 86; RESP 17; TEMP 36; O2SAT 99
== END 2021-12-29 12:49 | disposition home or self-care (01) ==
LOC: HO.ED 06:30 → HO.EDOVER 10:27 → HO.S3 17:38
PROVIDERS: Admitting Provider Student in an Organized Health Care Education/Training Program; Emergency Provider Emergency Medicine; Visit Provider Student in an Organized Health Care Education/Training Program
DX: J45.901 Unspecified asthma with (acute) exacerbation (principal); N17.9 Acute kidney failure, unspecified; Z20.822 Contact with and (suspected) exposure to COVID-19
CPT/HCPCS: 36415; 71045; 80048; 80307; 82550; 85025; 87635; 96361; 96365; 96366; 96375; 99218; 99285; J2930; J3475

== ENCOUNTER 2022-01-24 10:21 | Emergency (ER) | payer MEDICAID, SELFPAY ==
--- NOTE | ~2022-01-24 | XR_ITS ---
EXAMINATION: XR CHEST CLINICAL INFORMATION: Wheezing and SOB. COMPARISON: None TECHNIQUE: 2 views of the chest were obtained. FINDINGS: No significant abnormality is noted involving the heart, lungs, mediastinum, bony thorax or soft tissues. XR/XR chest 2V IMPRESSION: Unremarkable chest examination.
[2022-01-24 10:29] VITALS: BP 120/78; PULSE 84; O2SAT 92
[2022-01-24 11:58] VITALS: BP 123/86; PULSE 74; RESP 16; TEMP 36.4; O2SAT 97; BMI 24.7
[2022-01-24 12:32] LABS: COVID-19 Test Negative (Negative); IDNOW Serial# 16C4AD1C
--- NOTE | 2022-01-24 14:02 | ED.ASTHMA ---
HPI - Asthma General Chief Complaint: Dyspnea Stated Complaint: ASTHMA Time Seen by Provider: 01/24/22 13:56 Source: patient and EMS Mode of arrival: EMS Limitations: no limitations History of Present Illness HPI Narrative: 32 y/o male with history of mild intermittent asthma, daily marijuana smoker who presents to the ER via EMS with acute onset SOB and wheezing that started today. He reports yesterday he smoked a blunt with a friend that may have been laced with something because he felt anxious afterward and had palpitations. He did not have SOB or wheezing yesterday but woke up with those symptoms today. He ran out of his albuterol inhaler. He reports last asthma exacerbation was last month. He continues to smoke marijuana but no cigarettes. EMS found the patient wheezing - IV established and given IV solumedrol. given neb en route with ongoing symptoms. never hypoxic or having increased WOB MD complaint: shortness of breath and wheezing Onset (ago): hour(s) (8) Severity: moderate and similar to prior Context: ran out of meds and smoke exposure Associated symptoms: dry cough Treatments Prior to Arrival: inhaled bronchodilator and IV steroid Related Data Home Medications Medication Instructions Recorded Confirmed fluticasone propionate 110 2 puff inhalation BID 12/28/21 12/28/21 mcg/actuation HFA aerosol inhaler (Flovent HFA) Previous Rx's Medication Instructions Recorded albuterol sulfate 2.5 mg/3 mL 2.5 mg (3 mL) inhalation Q4-6H PRN 09/20/20 (0.083 %) solution for nebulization shortness of breath or wheezing #180 mL albuterol sulfate 90 mcg/actuation 2 puff inhalation Q6H PRN 09/20/20 aerosol inhaler (Proventil HFA) shortness of breath or wheezing #8.5 grams prednisone 20 mg tablet 40 mg PO DAILY 4 days #8 tabs 12/29/21 albuterol sulfate 90 mcg/actuation 1 inh inhalation QID PRN shortness 01/24/22 aerosol inhaler of breath or wheezing #6.7 grams azithromycin 250 mg tablet See Rx Instructions PO .COMPLEX #6 01/24/22 (Zithromax Z-Nemesio) tabs nebulizer accessories #1 ea 01/24/22 nebulizers (Aeroneb Go Nebulizer) #1 ea 01/24/22 prednisone 20 mg tablet 40 mg PO DAILY #10 tabs 01/24/22 Allergies Allergy/AdvReac Type Severity Reaction Status Date / Time No Known Allergies Allergy Unknown unknown Verified 11/02/21 11:21 [NO KNOWN ALLERGIES] Review of Systems Review of Systems: Constitutional: No Fever, No Chills ENT/Mouth: No sore throat, No Rhinorrhea Cardiovascular: No Chest Pain, + SOB, No Orthopnea, No Edema Respiratory: + Cough, No Sputum, + Wheezing, + dyspnea Gastrointestinal: No Nausea, No Vomiting, No Diarrhea, No abdominal Pain Musculoskeletal: No joint pain, No Myalgias Skin: No Skin Lesions, No rash Neuro: No Weakness, No Numbness, No Dizziness, No Headache Psych: + Anxiety/Panic, No Depression Heme/Lymph: No Bruising, No Lymphadenopathy PMFSH Past Medical History Medical History Asthma Family History Family History Mother Asthma Father Asthma Social History Social History Alcohol intake: unknown Patient Tobacco Use Status: Never used Tobacco Substance Use Type: Marijuana Advance Directives: No Advance Directives Information Provided: No service: No Current occupational status: employed and unemployed Physical Exam Vital Signs: Vital Signs: Last Vital Signs Temp 97.5 F 01/24/22 11:58 Pulse 77 01/24/22 14:25 Resp 18 01/24/22 14:25 BP 123/86 01/24/22 11:58 Pulse Ox 97 01/24/22 11:58 O2 Del Method 01/24/22 11:58 BMI result Body Mass Index 24.7 Appearance: Alert. Oriented X3. No acute distress. Eyes: Pupils equal, round and reactive to light. ENT: Pharynx normal. Neck: Normal inspection. Neck supple. CVS: Normal heart rate and rhythm. Pulses normal. Respiratory: No respiratory distress. Breath sounds with diffuse inspiratory and expiratory wheezes throughout. speaking in complete sentences Abdomen: Soft and nontender. +BS x4 Skin: Skin warm and dry. Normal skin color. Normal skin turgor. No rashes. Extremities: No lower extremity edema. Neuro: Oriented X 3. grossly normal, nonfocal Course Course Course Narrative: 32 yo male with hx asthma presenting with SOB and wheezing that started today after smoking a blunt that may have been laced with other drugs yesterday. Not hypoxic or working to breathe but he is diffusely wheezey throuhghout. Will get CXR to r/o PNA, covid and flu swabs, give albuterol 5m g now and reassess. Reevaluation(s) Reevaluation #1: cxr clear. viral swabs neg. aeration and wheezing much improved after nebulizer. will d/c home with prednisone, z-pack, albuterol inhaler and rx for neb. he agrees with plan. smoking cessation also discussed at length. patient expressed understanding. encouraged pulm f/u as well. stable for d/c home. MDM - Asthma Lab Data Labs: Lab Results 01/24/22 Range/Units 12:02 COVID-19 (JOSE) Negative (Negative) COVID-19 Clin Com See Note Procedures Smoking Cessation Time Spent Discussing Smoking Cessation w/Patient (min): 10 Patient Acknowledges Need for Cessation: Yes Additional Comments: discussed alternatives, and risks of ongoing smoking Discharge Plan Discharge Clinical Impression: Asthma exacerbation Patient Disposition: Home, Self-Care Instructions: Asthma (ED) Additional Instructions: Your x-ray did not show any pneumonia. You are negative for Flu and COVID. Take the prescribed mediations as directed for asthma Recommend seeking out a medical supply store like [employer] in [place] with the provided nebulizer prescription papers Stop smoking marijuana. Recommend following up with a lung doctor - name and number below, call for an appointment. If you develop new or worsening symptoms call 911 or come back to the ER for further evaluation. Prescriptions: New albuterol sulfate 90 mcg/actuation HFA aerosol inhaler 1 inh inhalation QID PRN (Reason: shortness of breath or wheezing) Qty: 6.7 0RF prednisone 20 mg tablet 40 mg PO DAILY Qty: 10 0RF azithromycin [Zithromax Z-Nemesio] 250 mg tablet See Rx Instructions .ROUTE .COMPLEX Qty: 6 0RF Rx Instructions: take 500 mg today (day 1), then 250 mg for 4 days (days 2-5) (DME) nebulizers [Aeroneb Go Nebulizer] Misc See Rx Instructions .Route Qty: 1 0RF Rx Instructions: As directed (DME) nebulizer accessories Kit See Rx Instructions .Route Qty: 1 0RF Rx Instructions: As directed No Action albuterol sulfate 2.5 mg /3 mL (0.083 %) solution for nebulization 2.5 mg inhalation Q4-6H PRN (Reason: shortness of breath or wheezing) Qty: 180 0RF albuterol sulfate [Proventil HFA] 90 mcg/actuation HFA aerosol inhaler 2 puff inhalation Q6H PRN (Reason: shortness of breath or wheezing) Qty: 8.5 2RF fluticasone propionate [Flovent HFA] 110 mcg/actuation HFA aerosol inhaler 2 puff INHALATION BID Rx Instructions: OUT OF REFILLS prednisone 20 mg Tablet 40 mg PO DAILY 4 Days Qty: 8 0RF Referrals: [facility] [Provider Group] (asthma with frequent exacerbations) [facility] [Primary Care Provider] - Stand Alone Forms: Work/School Release
[2022-01-24] MEDS: Albuterol Sulfate 2.5 MG, Albuterol Sulfate (0.083%) 2.5 MG 5 MG INHALE (14:24)
[2022-01-24 14:25] VITALS: PULSE 77; RESP 18; O2SAT 98
== END 2022-01-24 16:07 | disposition home or self-care (01) ==
PROVIDERS: Emergency Provider Emergency Medicine Emergency Medical Services
DX: J45.901 Unspecified asthma with (acute) exacerbation (principal); R06.00 Dyspnea, unspecified; F17.210 Nicotine dependence, cigarettes, uncomplicated; Z20.822 Contact with and (suspected) exposure to COVID-19; Z79.899 Other long term (current) drug therapy; Z71.6 Tobacco abuse counseling
CPT/HCPCS: 71046; 87635; 94640; 99283; 99284

== ENCOUNTER 2022-02-02 12:04 | Observation (INO) | payer MEDICAID, SELFPAY ==
--- NOTE | ~2022-02-02 | XR_ITS ---
EXAMINATION: XR chest 1V CLINICAL INFORMATION: Reason for Exam asthma COMPARISON: Chest radiograph 01/24/2022 TECHNIQUE: One view of the chest FINDINGS: Bronchial wall thickening can be seen with a small airways process such as asthma or atypical/viral infection. No pneumothorax or pleural effusion. Normal cardiomediastinal silhouette. XR/XR chest 1V Impression: Bronchial wall thickening can be seen with a small airways process such as asthma or atypical/viral infection.
[2022-02-02 12:06] VITALS: BP 118/81; PULSE 86; RESP 18; TEMP 36.7; O2SAT 97; BMI 22.4
--- NOTE | 2022-02-02 12:14 | ED.SOB ---
HPI - SOB/Dyspnea General Chief Complaint: Dyspnea Stated Complaint: Asthma Time Seen by Provider: 02/02/22 12:09 Source: patient Mode of arrival: ambulatory Limitations: no limitations History of Present Illness HPI Narrative: 32-year-old male with a history of asthma presents with cough, wheezing, difficulty breathing since last night. Patient denies any fevers, chills, runny nose, sore throat. No chest pain, leg swelling or leg pain. Patient using albuterol inhaler with continued symptoms. Last use was 08:00. Patient did have nebulizer machine but he lost it. Patient passes been on Spiriva, Breo and Flovent but is not taking these currently. Patient has had several hospitalizations for asthma. Last hospitalization was December 2021. No history of intubation. Related Data Home Medications Medication Instructions Recorded Confirmed albuterol sulfate 90 mcg/actuation 2 inh inhalation QID PRN shortness 02/02/22 aerosol inhaler of breath or wheezing Previous Rx's Medication Instructions Recorded albuterol sulfate 2.5 mg/3 mL 2.5 mg (3 mL) inhalation Q4-6H PRN 09/20/20 (0.083 %) solution for nebulization shortness of breath or wheezing #180 mL nebulizer accessories #1 ea 01/24/22 nebulizers (Aeroneb Go Nebulizer) #1 ea 01/24/22 Allergies Allergy/AdvReac Type Severity Reaction Status Date / Time No Known Allergies Allergy Unknown unknown Verified 11/02/21 11:21 [NO KNOWN ALLERGIES] Review of Systems Review of Systems: Yes all other systems are reviewed and are negative Constitutional: Constitutional: Reports no additional constitutional complaints, Denies body ache(s), Denies chills, Denies fever(s), Denies headache(s) and Denies weakness Eyes: Eyes: Reports no additional eye complaints and Denies change in vision ENT: Reports system reviewed and no additional complaints, except as documented, Denies dizziness, Denies headache(s), Denies nasal congestion, Denies nasal discharge and Denies neck pain Cardiovascular: Cardiovascular: Reports no additional cardiovascular complaints, Denies chest pain, Denies leg edema and Denies dyspnea Respiratory: Respiratory: Reports no additional respiratory complaints, Reports cough, Denies dyspnea and Reports wheezing Gastrointestinal: Gastrointestinal: Reports no additional gastrointestinal complaints, Denies abdominal pain, Denies diarrhea, Denies nausea and Denies vomiting Genitourinary: Genitourinary: Denies urinary incontinence Musculoskeletal: Musculoskeletal: Reports no additional musculoskeletal complaints, Denies back pain, Denies arthralgias, Denies joint swelling, Denies neck pain, Denies numbness and Denies tingling Integumentary/Breasts: Skin/Breast: Reports system reviewed and no additional complaints, except as docu and Denies rash Neurologic: Reports system reviewed and no additional complaints, except as documented, Denies Abnormal speech present, Denies dizziness, Denies headache(s), Denies numbness, Denies tingling and Denies weakness Allergic/Immunologic: Allergic/Immunologic: Reports wheezing PMFSH Past Medical History Attestation statement: The following information was validated with the patient. Source: old records reviewed and nursing notes reviewed Medical History Asthma Family History Family History Mother Asthma Father Asthma Social History Social History Alcohol intake: unknown Patient Tobacco Use Status: Never used Tobacco Substance Use Type: Marijuana Advance Directives: No Advance Directives Information Provided: No service: No Current occupational status: employed and unemployed Physical Exam Vital Signs: Vital Signs: Last Vital Signs Temp 98.1 F 02/02/22 12:06 Pulse 86 02/02/22 14:07 Resp 16 02/02/22 14:07 BP 118/81 02/02/22 12:06 Pulse Ox 97 02/02/22 12:06 O2 Del Method 02/02/22 12:06 BMI result Body Mass Index 22.4 Const: General: alert, acute distress and ill appearing Orientation/consciousness: patient oriented x3 Limitations: no limitations HEENT: Head: Yes normal to inspection Ears: hearing grossly normal bilaterally and TM's normal bilaterally General nose exam: Normal external nose present Face and sinus: Yes normal facial exam Mouth: Normal oral and palatal mucosa present Throat: Yes posterior oropharynx normal, Yes tonsils normal and Yes uvula midline Eyes: General: appearance normal, both eyes and all related structures Pupils: Equal, round and reactive pupils present Neck: Neck: Yes normal visual inspection, Yes full ROM, Yes no lymphadenopathy and Yes no meningeal signs Chest: Chest palpation & inspection: normal inspection of the chest Resp: Other: +tachypnea, speaking short phrases Wheezing throughout Cardio: Rate: regular rate Rhythm: regular rhythm Peripheral pulses: Peripheral pulses 2+ throughout GI: Inspection: Yes normal to inspection Palpation (GI): Soft to palpation and nontender Auscultation: normal bowel sounds Back/Spine/Pelvis: Thoracic/Lumbar Spine: thoracic and lumbar spine normal to inspection Skin: General skin exam: no rashes or lesions noted Neuro: General: patient oriented x3, no meningeal signs, no focal motor deficits and normal sensation to monofilament Cranial nerves: Yes Equal, round and reactive pupils present Cognition (Neuro): normal cognition Speech: No Abnormal speech present Gait exam (Neuro): Normal gait present Motor exam (neuro): 5/5 motor strength present throughout Extrem: General: Yes normal to inspection, Yes no pedal edema and Yes no calf tenderness Course Course Course Narrative: Testing for flu, COVID, RSV are negative. Chest x-ray shows no acute finding. Reviewed labs. Patient has mildly elevated creatinine. Patient received 2 liters of IV fluid will recheck creatinine Reevaluation(s) Reevaluation #1: 1400-continued wheezing despite DuoNeb. Patient received 10 mg of albuterol Reevaluation #2: 1500-continued wheezing after 10 mg of albuterol. Patient has tachypnea with minimal exertion. At this point patient has received solumedrol, magnesium, several nebulizers and has been observed for several hours with continued symptoms. anticipate admission Reevaluation #3: 1600-Patient seen by Dr Love who will admit patient MDM - SOB/Dyspnea MDM Narrative Medical decision making narrative: 32 yo male here with cough/wheezing/SOB since yesterday despite using albuterol MDI. On arrival tachynpnic, I/E wheezing throughout. Oxygen okay Will need solumedrol, magnesium, duoneb CXR to eval for PNA Flu/COVID/RSV testing Differential Diagnosis Differential diagnosis: Likely pneumonia and asthma with exacerbation Medical Records Attestation: I reviewed the patient's medical records. Lab Data Attestation: I reviewed the patient's lab results. Result diagrams: 02/02/22 12:32 02/02/22 12:32 Labs: Lab Results 02/02/22 02/02/22 02/02/22 Range/Units 12:32 12:32 12:32 WBC 6.2 (4.8-10.8) X10*3/uL RBC 5.52 (4.60-5.80) X10*6/uL Hgb 14.8 (14.0-18.0) g/dl Hct 46.1 (42.0-52.0) % MCV 83.5 (80.0-98.0) fL MCH 26.8 L (27.0-33.0) pg MCHC 32.1 (31.0-36.0) g/dl RDW 14.1 (11.0-16.0) % Plt Count 255 (160-400) X10*3/uL MPV 10.6 (9.4-12.4) fL Immature Gran % (Auto) 0.3 (0.0-0.4) % Neut % (Auto) 50.3 (45-73) % Lymph % (Auto) 29.4 (20-40) % [place] % (Auto) 10.7 (2-11) % Eos % (Auto) 8.6 H (0-4) % Baso % (Auto) 0.7 (0-2) % Lymph # (Auto) 1.8 (1.2-4.9) X10*3/uL [place] # (Auto) 0.7 (0.1-1.2) X10*3/uL Eos # (Auto) 0.5 H (0.0-0.4) X10*3/uL Baso # (Auto) 0.0 (0.0-0.2) X10*3/uL Abs Immat Gran (auto) 0.02 (0.00-0.03) X10*3/uL Absolute Neuts (auto) 3.1 (2.0-8.3) x10*3/uL Absolute Nucleated RBC 0.000 (0.0-0.012) X10*3/uL Nucleated RBC % (auto) 0.0 (0.0-0.2) /100WBC Sodium 142 (135-145) mmol/L Potassium 5.3 H (3.3-5.1) mmol/L Chloride 102 (96-108) mmol/L Carbon Dioxide 28 (22-29) mmol/L Anion Gap 17 (12-20) BUN 12 (9-16) mg/dL Creatinine 1.54 H (0.5-1.4) mg/dL Estim Creat Clear Calc 59.6 Estimated GFR 53 Random Glucose 94 (60-115) mg/dL Calcium 10.4 H (8.4-10.2) mg/dL Influenza Type A (PCR) NEGATIVE (Negative) Influenza Type B (PCR) NEGATIVE (Negative) RSV RNA Qual (PCR) NEGATIVE (Negative) SARS-CoV-2 RNA (RT-PCR) NEGATIVE (Negative) Imaging Data Chest x-ray: Attestation: I personally reviewed and interpreted this imaging study as follows: Radiologist's impression: [address] [address] XRay Report Signed Patient: Chirag Alvarez MR#: [id number] : 1990 Acct:[id number] Age/Sex: 32 / M ADM Date: 02/02/22 Loc: .ED Attending Dr: Ordering Physician: Jeanette Lopez MD Date of Service: 02/02/22 Procedure(s): XR chest 1V Accession Number(s): [id number] cc: Jeanette Lopez MD~ EXAMINATION: XR chest 1V CLINICAL INFORMATION: Reason for Exam asthma COMPARISON: Chest radiograph? 01/24/2022 TECHNIQUE: One view of the chest FINDINGS: Bronchial wall thickening can be seen with a small airways process such as asthma or atypical/viral infection. No pneumothorax or pleural effusion. Normal cardiomediastinal silhouette. XR/XR chest 1V Impression: ? Bronchial wall thickening can be seen with a small airways process such as asthma or atypical/viral infection. Discharge Plan Discharge Clinical Impression: Asthma exacerbation Patient Disposition: Admitted As Inpatient
[2022-02-02] MEDS: Albuterol/Iprat 2.5/0.5MG 3 ML AMPUL.NEB INHALE ×2 (12:34→21:34)
[2022-02-02 12:35] VITALS: PULSE 75; RESP 16; O2SAT 97
[2022-02-02 12:36] LABS: MANUAL DIFF FLAG NO
[2022-02-02 12:38] LABS: Basophils Percent Auto 0.7 % (0-2); Eosinophils Absolute Auto 0.5 X10*3/uL (0.0-0.4); Eosinophils Percent Auto 8.6 % (0-4); Hematocrit 46.1 % (42.0-52.0); Hemoglobin 14.8 g/dl (14.0-18.0); Imm Gran Abs Auto 0.02 X10*3/uL (0.00-0.03); Imm Gran Pct Auto 0.3 % (0.0-0.4); Lymphocytes Absolute Auto 1.8 X10*3/uL (1.2-4.9); Lymphocytes Percent Auto 29.4 % (20-40); Mean Corpuscular HGB Conc 32.1 g/dl (31.0-36.0); Mean Corpuscular Hemoglobin 26.8 pg (27.0-33.0); Mean Corpuscular Volume 83.5 fL (80.0-98.0); Mean Platelet Volume 10.6 fL (9.4-12.4); Monocytes Absolute Auto 0.7 X10*3/uL (0.1-1.2); Monocytes Percent Auto 10.7 % (2-11); Neutrophils Absolute Auto 3.1 x10*3/uL (2.0-8.3); Neutrophils Percent Auto 50.3 % (45-73); Platelet Count 255 X10*3/uL (160-400); Red Blood Count 5.52 X10*6/uL (4.60-5.80); Red Cell Distribution Width 14.1 % (11.0-16.0); White Blood Count 6.2 X10*3/uL (4.8-10.8)
[2022-02-02] MEDS: methylPREDNISolone Sod Succ 125 MG/2 ML VIAL IVPUSH (12:38)
[2022-02-02 13:10] LABS: Anion Gap 17 (12-20); Blood Urea Nitrogen 12 mg/dL (9-16); Calcium 10.4 mg/dL (8.4-10.2); Carbon Dioxide 28 mmol/L (22-29); Chloride 102 mmol/L (96-108); Creatinine Clr Calc Pharmacy 59.6; Estimated Glomerular Filt Rate 53; Glucose Random 94 mg/dL (60-115); Potassium 5.3 mmol/L (3.3-5.1); Sodium 142 mmol/L (135-145)
[2022-02-02] MEDS: Magnesium Sulfate/H2O 2 GM/50 ML PIGGYBACK IV (13:15)
[2022-02-02 13:21] LABS: Influenza A PCR NEGATIVE (Negative); Influenza B PCR NEGATIVE (Negative); Resp Syncy Virus RNA Qual PCR NEGATIVE (Negative); SARS COV2 PCR INHOUSE NEGATIVE (Negative)
[2022-02-02] MEDS: 0.9 % Sodium Chloride 1,000 ML 999 ML IV ×2 (13:22→14:52)
[2022-02-02] MEDS: Albuterol Sulfate 7.5 MG, Albuterol Sulfate (0.083%) 2.5 MG 10 MG INHALE (14:03)
[2022-02-02 14:07] VITALS: PULSE 86; RESP 16; O2SAT 97
--- NOTE | 2022-02-02 16:04 | P.HPHOSP_ITS ---
History of Present Illness Date of Service: 02/02/22 Chief Complaint: Shortness of breath 32-year-old male with a history of asthma with frequent hospitalization, no prior intubation, smokes canabis, vaccinated for covid. He comes with sob, increasing wheezing, dry cough since yesterday and is not getting relief with inhalers. Noted to be wheezy. Treated with here with Nebs, Mag, and Solumedrol with persistent symptoms and is being observed overnight. CXR no acute finding, no hypoxia. Last hospitalization was last month. Lab noted for Cr 1.54, K of 5.3, there is history CKD2 Review of Systems Review of Systems: Gen: no fever Resp: + sob, + cough CV: no chest, no GOMEZ, no leg edema GI: No n/v, no abd pain Neuro: No confusion Yes all other systems are reviewed and are negative [facility] Medical History Asthma Family History Mother Asthma Father Asthma Social History Alcohol intake: unknown Patient Tobacco Use Status: Never used Tobacco Substance Use Type: Marijuana Advance Directives: No Advance Directives Information Provided: No service: No Current occupational status: employed and unemployed Meds Allergies Allergy/AdvReac Type Severity Reaction Status Date / Time No Known Allergies Allergy Unknown unknown Verified 11/02/21 11:21 [NO KNOWN ALLERGIES] Active Medications: Current Medications Pharmacy Consult (Consult Rx Perform Med Rec) 1 each MISCELLANE ONCE PRN PRN Reason: Consult order Home Medications Medication Instructions Recorded Confirmed Last Taken Type albuterol sulfate 90 mcg/actuation 2 inh inhalation QID PRN shortness 02/02/22 Unknown History aerosol inhaler of breath or wheezing Physical Exam Vital Signs and Narrative: Vital Signs: Last Vital Signs Temp 98.1 F 02/02/22 12:06 Pulse 86 02/02/22 14:07 Resp 16 02/02/22 14:07 BP 118/81 02/02/22 12:06 Pulse Ox 97 02/02/22 12:06 O2 Del Method 02/02/22 12:06 BMI result Body Mass Index 22.4 Const: Other: Constitutional: Alert, in no distress, Mental Status: Oriented to person, place and time. Eyes: Pupils are equal, round and reactive to light. Ear, Nose and Throat: Oropharynx clear, mucous membranes moist. Ears and nose without eformities. Trachea mid Respiratory: shilo ins/exp wheezing, no rales or rhonchi. No accessory muscle use Cardiovascular: S1 S2 regular. No murmurs, rubs or gallops. Gastrointestinal: Abdomen soft, non-tender, non-distended. Normal bowel sounds.? Neurologic: Cranial nerves II-XII grossly intact. No focal neurological deficits. Moves all extremities spontaneously.? Skin: No rashes or lesions.? Musculoskeletal: No cyanosis or clubbing. Psychiatric: Normal mood and affect? Results Labs CBC and Chem 7: 02/02/22 12:32 02/02/22 12:32 Labs: Laboratory Results - last 24 hr 02/02/22 02/02/22 02/02/22 12:32 12:32 12:32 MCV 83.5 MCH 26.8 L MCHC 32.1 RDW 14.1 Plt Count 255 MPV 10.6 Immature Gran % (Auto) 0.3 Neut % (Auto) 50.3 Lymph % (Auto) 29.4 [place] % (Auto) 10.7 Eos % (Auto) 8.6 H Baso % (Auto) 0.7 Lymph # (Auto) 1.8 [place] # (Auto) 0.7 Eos # (Auto) 0.5 H Baso # (Auto) 0.0 Abs Immat Gran (auto) 0.02 Absolute Neuts (auto) 3.1 Absolute Nucleated RBC 0.000 Nucleated RBC % (auto) 0.0 Anion Gap 17 Estim Creat Clear Calc 59.6 Estimated GFR 53 Random Glucose 94 Calcium 10.4 H Influenza Type A (PCR) NEGATIVE Influenza Type B (PCR) NEGATIVE RSV RNA Qual (PCR) NEGATIVE SARS-CoV-2 RNA (RT-PCR) NEGATIVE Imaging Radiologist's Impressions: Impressions Chest X-Ray 02/02/22 12:51 Impression: Bronchial wall thickening can be seen with a small airways process such as asthma or atypical/viral infection. Assessment and Plan (1) Moderate persistent allergic asthma: Status: Resolved Plan 31 year old male with history moderate persistent asthma presented to the ED this am for shortness of breath and wheezing to be observed for acute asthma exacerbation. 1- Acute asthma exacerbation, moderate persistent type -REceived IV solumedrol, albuterol updraft, duoneb, and 2gm Mg in ED. CXR negative -Continue IV solumedrol overnight then transition to oral prednisone in the morning -Duonebs q4h. Albuterol neb prn 2-YURIY--on CKD 2, creat 1.5 likely related to dehydration -Received IVF in ED. Encourage PO hydration -Repeat BMP AM 3. Hyperkalemia--mild should resolve with Albuterol, repeat in ama DVT prophylaxis- low risk Full code Quality Stroke Does the patient have a stroke diagnosis?: No VTE Prior VTE?: No VTE Risk Level:: Medical - low VTE Device Contraindication: Treatment Not Indicated VTE Drug Contraindication: Treatment Not Indicated
--- NOTE | 2022-02-02 17:20 | PHA.MEDREC ---
Pharmacy Consult ? Medication Reconciliation Pharmacy has completed the medication reconciliation. Patient discharged 01/24/22 with script for prednisone 40mg daily #10 tabs. Patient confirms to be taking prednisone, however it does not show up on claim history.
[2022-02-02 17:41] LABS: Anion Gap 16 (12-20); Blood Urea Nitrogen 11 mg/dL (9-16); Calcium 8.3 mg/dL (8.4-10.2); Carbon Dioxide 22 mmol/L (22-29); Chloride 108 mmol/L (96-108); Estimated Glomerular Filt Rate > 60; Glucose Random 122 mg/dL (60-115); Potassium 3.9 mmol/L (3.3-5.1); Sodium 142 mmol/L (135-145)
[2022-02-02] MEDS: Dextrose 5 % and 0.9 % NaCl 1,000 ML 100 ML IVCONT (18:52)
[2022-02-02 20:27] VITALS: BP 124/65; PULSE 95; RESP 22; TEMP 36.5; O2SAT 96
--- NOTE | 2022-02-02 20:34 | PC.NURSE ---
HOSPITALIST CONTACTED AFTER NO NEB TX AVAILABLE. WHEEZING RETURNED, HEARD THROUGHOUT, TACHYPNEIC, DIAPHORETIC, SPO2 WNL. DENIES PAIN.
--- NOTE | 2022-02-02 21:00 | PC.NURSE ---
report given to rn
[2022-02-02 21:34] VITALS: PULSE 95; RESP 22; O2SAT 99
--- NOTE | 2022-02-02 21:54 | PC.NURSE ---
rt at bedside for delivery of prn neb.wheezing not resolved, rt contacting hospitalist for additional dose
[2022-02-02] MEDS: 0.9 % Sodium Chloride Flush 3 ML SYRINGE IVFLUSH (23:47)
[2022-02-03] VITALS (7 sets, daily range): BP systolic 112–124; BP diastolic 57–75; PULSE 75–96; RESP 16–24; TEMP 36.2–36.6; O2SAT 95–99
--- NOTE | 2022-02-03 | ECG_ITS ---
Test Reason : tachycardia Blood Pressure : / mmHG Vent. Rate : 074 BPM Atrial Rate : 074 BPM P-R Int : 124 ms QRS Dur : 090 ms QT Int : 350 ms P-R-T Axes : 065 044 034 degrees QTc Int : 388 ms Normal sinus rhythm with sinus arrhythmia Normal ECG When compared with ECG of 12-OCT-2019 16:40, No significant change was found Referred By: Thanh [facility] Electronically Signed By:MAYDA LEMUS MD
[2022-02-03] MEDS: Albuterol/Iprat 2.5/0.5MG 3 ML AMPUL.NEB INHALE ×3 (04:43→13:52)
[2022-02-03] MEDS: Dextrose 5 % and 0.9 % NaCl 1,000 ML 100 ML IVCONT (06:11)
[2022-02-03] MEDS: methylPREDNISolone Sod Succ 40 MG/ML VIAL IVPUSH ×2 (06:11→12:05)
--- NOTE | 2022-02-03 10:08 | MHC.CM.PN ---
EMR REVIEWED, CM MET W/PT WHO REPORTS HE LIVES W/HIS PARENTS, DENIES USE OF DME/HOME SERVICES, PT VERIFIES COVID VACCINATED X2 HOWEVER UNSURE OF WHICH VACCINE, REPORTS HIS PCP IS AT [facility] HOWEVER DOES NOT KNOW NAME, PT EDUCATED ON AND CURRENTLY DECLINES TO COMPLETE A HCP. ANTIC D/C HOME BY TOMORROW HOME NO SERVICES W/FAMILY FOR TRANSPORT
--- NOTE | 2022-02-03 10:27 | PM.DS ---
DS: Providers Provider Date of Service: 02/03/22 Date of admission: 02/02/22 16:20 Primary care physician: [facility] DS: Diagnosis Discharge Diagnosis (1) Moderate persistent allergic asthma: Status: Resolved DS: Summary Hospital Course Hospital Course: Patient presented to the ED with exacerbation of moderate peristent asthma and did not improve in the ED with Neba and IV steroid and therefore was observed in the hospital for one night and continued on Nebs, IV steroid and improved rapidly and will be sent home with Prednisone for 4 mroe days. He advised to avoid Marijuana which maybe making his lung ocndition worse. Also had mikd YURIY which has resolved with IV fluid. Cr was 1.54 and now 1.24 Time Spent with Patient Time attestation: Total time spent providing and/or coordinating discharge services: Discharge coordination time: Less than 30 minutes Quality: Safe Use of Opioids Does Pt have an Active Cancer Diagnosis on the Problem List?: No Quality: Stroke Does the patient have a stroke diagnosis?: No Physical Exam Vital Signs: Vital Signs: Last Vital Signs Temp 97.6 F 02/03/22 07:59 Pulse 75 02/03/22 07:59 Resp 16 02/03/22 07:59 BP 115/75 02/03/22 07:59 Pulse Ox 96 02/03/22 07:59 O2 Del Method 02/03/22 07:59 BMI result Body Mass Index 22.4 Const: Other: General: AO X 3, no acute distress Resp: CTA bilateral CVS: S1,S2,RRR GI: +BS, NT, no distention Skin: No rash Neuro: motor grossly intact Psych: appropriate affect DS: Data Data Completed and Pending Labs on day of discharge: Laboratory Results - last 24 hr 02/02/22 02/02/22 02/02/22 12:32 12:32 12:32 WBC 6.2 RBC 5.52 Hgb 14.8 Hct 46.1 MCV 83.5 MCH 26.8 L MCHC 32.1 RDW 14.1 Plt Count 255 MPV 10.6 Immature Gran % (Auto) 0.3 Neut % (Auto) 50.3 Lymph % (Auto) 29.4 [place] % (Auto) 10.7 Eos % (Auto) 8.6 H Baso % (Auto) 0.7 Lymph # (Auto) 1.8 [place] # (Auto) 0.7 Eos # (Auto) 0.5 H Baso # (Auto) 0.0 Abs Immat Gran (auto) 0.02 Absolute Neuts (auto) 3.1 Absolute Nucleated RBC 0.000 Nucleated RBC % (auto) 0.0 Sodium 142 Potassium 5.3 H Chloride 102 Carbon Dioxide 28 Anion Gap 17 BUN 12 Creatinine 1.54 H Estim Creat Clear Calc 59.6 Estimated GFR 53 Random Glucose 94 Calcium 10.4 H Influenza Type A (PCR) NEGATIVE Influenza Type B (PCR) NEGATIVE RSV RNA Qual (PCR) NEGATIVE SARS-CoV-2 RNA (RT-PCR) NEGATIVE 02/02/22 17:06 WBC RBC Hgb Hct MCV MCH MCHC RDW Plt Count MPV Immature Gran % (Auto) Neut % (Auto) Lymph % (Auto) [place] % (Auto) Eos % (Auto) Baso % (Auto) Lymph # (Auto) [place] # (Auto) Eos # (Auto) Baso # (Auto) Abs Immat Gran (auto) Absolute Neuts (auto) Absolute Nucleated RBC Nucleated RBC % (auto) Sodium 142 Potassium 3.9 D Chloride 108 Carbon Dioxide 22 Anion Gap 16 BUN 11 Creatinine 1.24 Estim Creat Clear Calc 74.0 Estimated GFR > 60 Random Glucose 122 H Calcium 8.3 L D Influenza Type A (PCR) Influenza Type B (PCR) RSV RNA Qual (PCR) SARS-CoV-2 RNA (RT-PCR) Discharge Plan Discharge Anticipated Discharge Date/Time: 02/03/22 10:24 Patient Disposition: Home, Self-Care Discharge Diagnosis: Asthma exacerbation Referrals: [facility] [Primary Care Provider] - 1 Week Discharge Medications: Continued albuterol sulfate 2.5 mg /3 mL (0.083 %) solution for nebulization 2.5 mg inhalation Q4-6H PRN (Reason: shortness of breath or wheezing) Qty: 180 0RF (DME) nebulizers [Aeroneb Go Nebulizer[place] [facility] [place] .Route Qty: 1 0RF Rx Instructions: As directed (DME) nebulizer accessories Kit See Rx Instructions .Route Qty: 1 0RF Rx Instructions: As directed albuterol sulfate 90 mcg/actuation HFA aerosol inhaler 2 inh inhalation QID PRN (Reason: shortness of breath or wheezing) prednisone 20 mg tablet 2 tab PO DAILY Qty: 8 0RF Discharge Orders: Discharge Order (Routine); Ordered 02/03/22 Ordered By: Thanh Millard Diet: Advance to usual diet Activity on Discharge: As tolerated Stand Alone Forms: Patient Portal Discharge page Care Plan Goals: Full recovery from asthma Health Concerns: Ashtma exacerbation Plan of Treatment: use inhalers and take Prednisone as directed, avoid marijuana Assessment: as above
--- NOTE | 2022-02-03 11:15 | MHC.CM.PN ---
PATIENT TO D/C HOME NO SERVICES.
== END 2022-02-03 15:22 | disposition home or self-care (01) ==
LOC: HO.ED 16:03 → HO.EDOVER 16:34 → HO.S3 19:52
PROVIDERS: Nurse Practitioner Family; Admitting Provider Internal Medicine; Emergency Provider Emergency Medicine; PCP Internal Medicine; Visit Provider Internal Medicine
DX: J45.40 Moderate persistent asthma, uncomplicated (principal); N17.9 Acute kidney failure, unspecified; E87.5 Hyperkalemia; Z20.822 Contact with and (suspected) exposure to COVID-19; F12.90 Cannabis use, unspecified, uncomplicated
CPT/HCPCS: 0241U; 36415; 71045; 80048; 85025; 93005; 94640; 96361; 96365; 96366; 96367; 96375; 96376; 99218; 99285; J2920; J2930; J3475

== ENCOUNTER 2022-09-17 17:11 | Emergency (ER) | payer MEDICAID, SELFPAY ==
[2022-09-17 17:20] VITALS: BP 113/88; PULSE 77; RESP 24; TEMP 36.9; O2SAT 98
[2022-09-17 17:26] VITALS: BP 138/82; PULSE 83; O2SAT 99; BMI 29.3
[2022-09-17 18:24] LABS: MANUAL DIFF FLAG NO
[2022-09-17] MEDS: LORazepam 2 MG/ML VIAL 0.5 MG IVPUSH (18:24)
[2022-09-17 18:33] LABS: Basophils Percent Auto 0.3 % (0-2); Eosinophils Absolute Auto 0.1 X10*3/uL (0.0-0.4); Eosinophils Percent Auto 0.5 % (0-4); Hematocrit 44.1 % (42.0-52.0); Hemoglobin 14.7 g/dl (14.0-18.0); Imm Gran Abs Auto 0.02 X10*3/uL (0.00-0.03); Imm Gran Pct Auto 0.2 % (0.0-0.4); Lymphocytes Absolute Auto 1.6 X10*3/uL (1.2-4.9); Mean Corpuscular HGB Conc 33.3 g/dl (31.0-36.0); Mean Corpuscular Hemoglobin 27.2 pg (27.0-33.0); Mean Corpuscular Volume 81.7 fL (80.0-98.0); Mean Platelet Volume 10.6 fL (9.4-12.4); Monocytes Absolute Auto 0.6 X10*3/uL (0.1-1.2); Monocytes Percent Auto 6.1 % (2-11); Neutrophils Absolute Auto 8.1 x10*3/uL (2.0-8.3); Neutrophils Percent Auto 77.9 % (45-73); Platelet Count 247 X10*3/uL (160-400); Red Cell Distribution Width 13.6 % (11.0-16.0); White Blood Count 10.4 X10*3/uL (4.8-10.8)
--- NOTE | 2022-09-17 18:48 | ED.SEIZURE ---
HPI - Seizure General Chief Complaint: Seizure Stated Complaint: ? SZ/ anxiety Time Seen by Provider: 09/17/22 17:13 Source: patient Mode of arrival: EMS History of Present Illness HPI Narrative: 32-year-old male arrives via EMS who was called for patient anxiety and up on arrival EMS states that he developed seizure-like activity. On further questioning of the patient he reports significant increase in stress and emotions and states that he did use cocaine today. Patient reports that he has had seizures related to emotional stress previously. Related Data Home Medications Medication Instructions Recorded Confirmed albuterol sulfate 90 mcg/actuation 2 inh inhalation QID PRN shortness 02/02/22 02/02/22 aerosol inhaler of breath or wheezing Previous Rx's Medication Instructions Recorded albuterol sulfate 2.5 mg/3 mL 2.5 mg (3 mL) inhalation Q4-6H PRN 09/20/20 (0.083 %) solution for nebulization shortness of breath or wheezing #180 mL nebulizer accessories #1 ea 01/24/22 nebulizers (Aeroneb Go Nebulizer) #1 ea 01/24/22 prednisone 20 mg tablet 2 tab PO DAILY #8 tabs 02/03/22 Allergies Allergy/AdvReac Type Severity Reaction Status Date / Time No Known Allergies Allergy Unknown unknown Verified 09/17/22 17:32 [NO KNOWN ALLERGIES] Review of Systems Review of Systems: Pertinent positives and negatives as stated in HPI PMFSH Past Medical History Source: nursing notes reviewed Medical History Asthma Family History Family History Mother Asthma Father Asthma Social History Social History Alcohol intake: unknown Patient Tobacco Use Status: Never used Tobacco Substance Use Type: Marijuana Advance Directives: No Advance Directives Information Provided: No service: No Current occupational status: employed Physical Exam Vital Signs: Vital Signs: Last Vital Signs Temp 97.9 F 09/18/22 02:30 Pulse 65 09/18/22 02:30 Resp 18 09/18/22 02:30 BP 118/61 09/18/22 02:30 Pulse Ox 97 09/18/22 02:30 O2 Del Method Room Air 09/18/22 02:30 BMI result Body Mass Index 29.3 VITAL SIGNS: Reviewed. GENERAL: Well developed, well nourished, in moderate motion distress. HEAD: Normocephalic/atraumatic EYES: PERRLA, EOMI EARS: Ext canals without abnormality NOSE: Nares patent bilateral OROPHARYNX: no oral lesions noted, posterior pharynx clear NECK: Supple, no adenopathy LUNGS: Normal breath sounds. No adventitious sounds or accessory muscle use. SpO2<98> CARDIOVASCULAR: Regular rate and rhythm without noted murmurs ABDOMEN: Soft, non-tender, non-distended with bowel sounds. MUSCULOSKELETAL: No tenderness, deformities, or effusions noted on gross inspection. EXTREMITIES: No cyanosis, clubbing or edema. SKIN: Inspection of the skin reveals no rashes NEUROLOGIC: Alert and oriented x 4. Strength and sensation to light touch were grossly intact x 4. Medications Administered Discontinued Medications Generic Name Dose Route Start Last Admin Trade Name Freq PRN Reason Stop Dose Admin Sodium Chloride 1,000 mls @ 999 mls/hr 09/17/22 19:45 09/17/22 21:24 Ns IV 09/17/22 20:45 Infused .Q1H1M ROXANA Infusion Lorazepam 0.5 mg 09/17/22 18:10 09/17/22 18:24 Lorazepam 2 Mg/Ml Vial IVPUSH 09/17/22 18:11 0.5 mg ONCE ONE Administration Medical Decision Making Medical Decision Making [facility] Narrative: 32-year-old male in whom I suspect has had a stress related seizure-like activity, especially as he endorses this has happened previously under stressful situations. Patient is not on medication either. Patient has used cocaine and on review of lab work I note that there is an isolated bump in the creatinine that I suspect is related to this use. Patient received 2 L of IV fluids, U tox-cocaine positive. Focal deficits are noted. Strongly suspect that this was a pseudo-seizure in etiology. - Labs, Tox, IVF On re-evaluation patient is still noted to be tearful, lab work appears to be largely within normal limits other than the bump in the creatinine which I will repeat after IV fluids. Patient is otherwise stable for discharge to home. I reviewed all investigations, and patient has significantly improved and will be discharged home. He will be provided with a referral to follow-up with neurology. Differential Diagnosis Please see the discussion above Lab Data Please see the discussion above 09/17/22 18:19 09/17/22 18:19 Labs: Lab Results 09/17/22 09/17/22 09/17/22 Range/Units 18:19 18:19 23:09 WBC 10.4 (4.8-10.8) X10*3/uL RBC 5.40 (4.60-5.80) X10*6/uL Hgb 14.7 (14.0-18.0) g/dl Hct 44.1 (42.0-52.0) % MCV 81.7 (80.0-98.0) fL MCH 27.2 (27.0-33.0) pg MCHC 33.3 (31.0-36.0) g/dl RDW 13.6 (11.0-16.0) % Plt Count 247 (160-400) X10*3/uL MPV 10.6 (9.4-12.4) fL Immature Gran % (Auto) 0.2 (0.0-0.4) % Neut % (Auto) 77.9 H (45-73) % Lymph % (Auto) 15.0 L (20-40) % [place] % (Auto) 6.1 (2-11) % Eos % (Auto) 0.5 (0-4) % Baso % (Auto) 0.3 (0-2) % Lymph # (Auto) 1.6 (1.2-4.9) X10*3/uL [place] # (Auto) 0.6 (0.1-1.2) X10*3/uL Eos # (Auto) 0.1 (0.0-0.4) X10*3/uL Baso # (Auto) 0.0 (0.0-0.2) X10*3/uL Abs Immat Gran (auto) 0.02 (0.00-0.03) X10*3/uL Absolute Neuts (auto) 8.1 (2.0-8.3) x10*3/uL Absolute Nucleated RBC 0.000 (0.0-0.012) X10*3/uL Nucleated RBC % (auto) 0.0 (0.0-0.2) /100WBC Sodium 144 140 (135-145) mmol/L Potassium 4.6 4.0 (3.3-5.1) mmol/L Chloride 106 109 H (96-108) mmol/L Carbon Dioxide 27 22 (22-29) mmol/L Anion Gap 16 13 (12-20) BUN 14 12 (9-16) mg/dL Creatinine 1.48 H 1.47 H (0.5-1.4) mg/dL Estim Creat Clear Calc 62.6 63.0 Estimated GFR 55 56 Random Glucose 95 87 (60-115) mg/dL Calcium 10.7 H D 9.3 D (8.4-10.2) mg/dL Total Bilirubin 1.5 H (0.0-1.0) mg/dL AST 25 (5-37) U/L ALT 22 (0-40) U/L Alkaline Phosphatase 73 (39-117) U/L Total Protein 7.8 (6.5-8.0) g/dL Albumin 4.8 (3.5-5.0) g/dL Urine Color Urine Appearance Urine pH (5.0-9.0) Ur Specific [place] (1.005-1.025) Urine Protein (Neg-Trace) mg/dL Urine Glucose (UA) (Negative) mg/dL Urine Ketones (Negative) mg/dL Urine Blood (Negative) Urine Nitrite (Negative) Ur Leukocyte Esterase (Negative) Urine Opiates Screen (Not Detect) Urine Fentanyl Screen (Not Detect) Ur Barbiturates Screen (Not Detect) Ur Phencyclidine Scrn (Not Detect) Ur Amphetamines Screen (Not Detect) U Benzodiazepines Scrn (Not Detect) Urine Cocaine Screen (Not Detect) U Marijuana (THC) Screen (Not Detect) Ethyl Alcohol < 10 mg/dL 09/18/22 09/18/22 Range/Units 03:09 03:09 WBC (4.8-10.8) X10*3/uL RBC (4.60-5.80) X10*6/uL Hgb (14.0-18.0) g/dl Hct (42.0-52.0) % MCV (80.0-98.0) fL MCH (27.0-33.0) pg MCHC (31.0-36.0) g/dl RDW (11.0-16.0) % Plt Count (160-400) X10*3/uL MPV (9.4-12.4) fL Immature Gran % (Auto) (0.0-0.4) % Neut % (Auto) (45-73) % Lymph % (Auto) (20-40) % [place] % (Auto) (2-11) % Eos % (Auto) (0-4) % Baso % (Auto) (0-2) % Lymph # (Auto) (1.2-4.9) X10*3/uL [place] # (Auto) (0.1-1.2) X10*3/uL Eos # (Auto) (0.0-0.4) X10*3/uL Baso # (Auto) (0.0-0.2) X10*3/uL Abs Immat Gran (auto) (0.00-0.03) X10*3/uL Absolute Neuts (auto) (2.0-8.3) x10*3/uL Absolute Nucleated RBC (0.0-0.012) X10*3/uL Nucleated RBC % (auto) (0.0-0.2) /100WBC Sodium (135-145) mmol/L Potassium (3.3-5.1) mmol/L Chloride (96-108) mmol/L Carbon Dioxide (22-29) mmol/L Anion Gap (12-20) BUN (9-16) mg/dL Creatinine (0.5-1.4) mg/dL Estim Creat Clear Calc Estimated GFR Random Glucose (60-115) mg/dL Calcium (8.4-10.2) mg/dL Total Bilirubin (0.0-1.0) mg/dL AST (5-37) U/L ALT (0-40) U/L Alkaline Phosphatase (39-117) U/L Total Protein (6.5-8.0) g/dL Albumin (3.5-5.0) g/dL Urine Color Yellow Urine Appearance Clear Urine pH 6.0 (5.0-9.0) Ur Specific [place] 1.020 (1.005-1.025) Urine Protein Negative (Neg-Trace) mg/dL Urine Glucose (UA) Negative (Negative) mg/dL Urine Ketones Trace (Negative) mg/dL Urine Blood Negative (Negative) Urine Nitrite Negative (Negative) Ur Leukocyte Esterase Small (1+) H (Negative) Urine Opiates Screen Not Detected (Not Detect) Urine Fentanyl Screen Not Detected (Not Detect) Ur Barbiturates Screen Not Detected (Not Detect) Ur Phencyclidine Scrn Not Detected (Not Detect) Ur Amphetamines Screen Not Detected (Not Detect) U Benzodiazepines Scrn Not Detected (Not Detect) Urine Cocaine Screen POSITIVE H (Not Detect) U Marijuana (THC) Screen Not Detected (Not Detect) Ethyl Alcohol mg/dL Discharge Plan Discharge Clinical Impression: Generalized seizure, Emotional stress reaction, Cocaine use, YURIY (acute kidney injury) Patient Disposition: Home, Self-Care Instructions: Stress (ED), Nonepileptic Seizures (ED), Anxiety (ED) Additional Instructions: 1. Resume all home medications as prescribed. Increase water intake over the next 2-3 days. 2. I have provided you with a referral for Neurology, please call the office and set up an appointment for re-evaluation regarding your seizures. Return to the ER for any worsening symptoms. Prescriptions: No Action albuterol sulfate 2.5 mg /3 mL (0.083 %) solution for nebulization 2.5 mg inhalation Q4-6H PRN (Reason: shortness of breath or wheezing) Qty: 180 0RF (DME) nebulizers [Aeroneb Go Nebulizer] [facility] See Rx Instructions .Route Qty: 1 0RF Rx Instructions: As directed (DME) nebulizer accessories Kit See Rx Instructions .Route Qty: 1 0RF Rx Instructions: As directed albuterol sulfate 90 mcg/actuation HFA aerosol inhaler 2 inh inhalation QID PRN (Reason: shortness of breath or wheezing) prednisone 20 mg tablet 2 tab PO DAILY Qty: 8 0RF Referrals: [facility] [Primary Care Provider] - Benny Adams MD [Physician] -
[2022-09-17 18:50] LABS: Alanine Aminotransferase 22 U/L (0-40); Albumin Level 4.8 g/dL (3.5-5.0); Alkaline Phosphatase 73 U/L (39-117); Anion Gap 16 (12-20); Aspartate Amino Transferase 25 U/L (5-37); Bilirubin Total 1.5 mg/dL (0.0-1.0); Blood Urea Nitrogen 14 mg/dL (9-16); Calcium 10.7 mg/dL (8.4-10.2); Carbon Dioxide 27 mmol/L (22-29); Chloride 106 mmol/L (96-108); Creatinine Clr Calc Pharmacy 62.6; Estimated Glomerular Filt Rate 55; Ethanol < 10 mg/dL; Glucose Random 95 mg/dL (60-115); Potassium 4.6 mmol/L (3.3-5.1); Sodium 144 mmol/L (135-145); Total Protein 7.8 g/dL (6.5-8.0)
[2022-09-17] MEDS: 0.9 % Sodium Chloride 1,000 ML 999 ML IV (19:53)
[2022-09-17 23:45] LABS: Anion Gap 13 (12-20); Blood Urea Nitrogen 12 mg/dL (9-16); Calcium 9.3 mg/dL (8.4-10.2); Carbon Dioxide 22 mmol/L (22-29); Chloride 109 mmol/L (96-108); Estimated Glomerular Filt Rate 56; Glucose Random 87 mg/dL (60-115); Sodium 140 mmol/L (135-145)
[2022-09-18 00:03] VITALS: BP 124/59; PULSE 72; RESP 18; TEMP 36.6; O2SAT 97
[2022-09-18 02:30] VITALS: BP 118/61; PULSE 65; RESP 18; TEMP 36.6; O2SAT 97
[2022-09-18 03:23] LABS: Appearance Urine Clear; Color Urine Yellow; Glucose Urine UA Negative (Negative); Leukocyte Esterase Urine Small (1+) (Negative); Nitrite Urine Negative (Negative); UMIC TRIGGER UACC YES; Urine Blood Negative (Negative); Urine Ketones Trace mg/dL (Negative); Urine Protein Negative (Neg-Trace)
[2022-09-18 03:27] LABS: Amphetamine Screen Urine Not Detected (Not Detect); Barbiturates, Urine Not Detected (Not Detect); Benzodiazepines Screen Urine Not Detected (Not Detect); Cannabinoid Screen Urine Not Detected (Not Detect); Cocaine Screen Urine POSITIVE (Not Detect); Fentanyl, urine Not Detected (Not Detect); Opiate Screen Urine Not Detected (Not Detect); Phencyclidine Screen Urine Not Detected (Not Detect)
[2022-09-18 03:56] LABS: RBC Urine 0-2 /HPF (0-2); UACC Culture Trigger YES; WBC Urine 0-5 /HPF (0-5)
[2022-09-18 03:57] LABS: Bacteria Urine Trace (None Seen); Hyaline Casts Urine 0-2 /LPF (0-2)
== END 2022-09-18 04:26 | disposition home or self-care (01) ==
PROVIDERS: Emergency Provider Student in an Organized Health Care Education/Training Program
DX: G40.409 Other generalized epilepsy and epileptic syndromes, not intractable, without status epilepticus (principal); F43.89 Other reactions to severe stress; F14.90 Cocaine use, unspecified, uncomplicated; N17.9 Acute kidney failure, unspecified; Z79.899 Other long term (current) drug therapy
CPT/HCPCS: 36415; 80048; 80053; 80307; 81001; 85025; 96361; 96374; 99284; J2060

== ENCOUNTER 2022-12-24 19:17 | Emergency (ER) | payer MEDICAID, SELFPAY ==
--- NOTE | ~2022-12-24 | XR_ITS ---
EXAMINATION: XR ANKLE, RIGHT CLINICAL INFORMATION: Twisting injury. Rule out fracture. COMPARISON: None available. TECHNIQUE: AP, lateral, and mortise views of the right ankle. FINDINGS: No fracture. Alignment is anatomic. No erosions. Joint spaces are maintained. Soft tissues are normal. XR/XR ankle RT 2V IMPRESSION: Unremarkable right ankle exam.
--- NOTE | 2022-12-24 19:34 | ED.LOWEXIN ---
HPI - Extremity Injury (Lower) General Chief Complaint: Extremity Injury, Lower Stated Complaint: right ankle pain Time Seen by Provider: 12/24/22 20:29 Source: patient Mode of arrival: ambulatory Limitations: no limitations History of Present Illness HPI Narrative: 32 yo male with history of asthma here with complaints of right ankle pain after twisting injury today. No weakness, numbness, tingling of the extremity. Related Data Home Medications Medication Instructions Recorded Confirmed albuterol sulfate 90 mcg/actuation 2 inh inhalation QID PRN shortness 02/02/22 02/02/22 aerosol inhaler of breath or wheezing Previous Rx's Medication Instructions Recorded albuterol sulfate 2.5 mg/3 mL 2.5 mg (3 mL) inhalation Q4-6H PRN 09/20/20 (0.083 %) solution for nebulization shortness of breath or wheezing #180 mL nebulizer accessories #1 ea 01/24/22 nebulizers (Aeroneb Go Nebulizer) #1 ea 01/24/22 prednisone 20 mg tablet 2 tab PO DAILY #8 tabs 02/03/22 ibuprofen 600 mg tablet 600 mg PO Q8H PRN pain #30 tabs 12/24/22 Allergies Allergy/AdvReac Type Severity Reaction Status Date / Time No Known Allergies Allergy Unknown unknown Verified 12/24/22 19:35 [NO KNOWN ALLERGIES] Review of Systems Review of Systems: Yes all other systems are reviewed and are negative Constitutional: Constitutional: Reports no additional constitutional complaints, Denies body ache(s), Denies chills, Denies fever(s), Denies headache(s) and Denies weakness Eyes: Eyes: Reports no additional eye complaints and Denies change in vision ENT: Reports system reviewed and no additional complaints, except as documented, Denies dizziness, Denies headache(s), Denies nasal congestion, Denies nasal discharge and Denies neck pain Cardiovascular: Cardiovascular: Reports no additional cardiovascular complaints, Denies chest pain, Denies leg edema and Denies dyspnea Respiratory: Respiratory: Reports no additional respiratory complaints, Denies cough and Denies dyspnea Gastrointestinal: Gastrointestinal: Reports no additional gastrointestinal complaints, Denies abdominal pain, Denies diarrhea, Denies nausea and Denies vomiting Genitourinary: Genitourinary: Denies urinary incontinence Musculoskeletal: Musculoskeletal: Reports no additional musculoskeletal complaints, Denies back pain, Reports arthralgias, Reports joint swelling, Denies neck pain, Denies numbness and Denies tingling Integumentary/Breasts: Skin/Breast: Reports system reviewed and no additional complaints, except as docu and Denies rash Neurologic: Reports system reviewed and no additional complaints, except as documented, Denies Abnormal speech present, Denies dizziness, Denies headache(s), Denies numbness, Denies tingling and Denies weakness [facility] Past Medical History Attestation statement: The following information was validated with the patient. Source: old records reviewed and nursing notes reviewed Medical History Asthma Family History Family History Mother Asthma Father Asthma Social History Social History Alcohol intake: unknown Patient Tobacco Use Status: Never used Tobacco Substance Use Type: Marijuana service: No Current occupational status: employed Physical Exam Vital Signs: Vital Signs: Last Vital Signs Temp 98.1 F 12/24/22 19:36 Pulse 84 12/24/22 19:36 Resp 16 12/24/22 19:36 BP 118/74 12/24/22 19:36 Pulse Ox 96 12/24/22 19:36 O2 Del Method Room Air 12/24/22 19:36 BMI result Body Mass Index 25.2 Const: General: cooperative, healthy appearing, comfortable and no acute distress Orientation/consciousness: patient oriented x3 Limitations: no limitations HEENT: Head: Yes normal to inspection Ears: hearing grossly normal bilaterally General nose exam: Normal external nose present Face and sinus: Yes normal facial exam Mouth: Normal oral and palatal mucosa present Throat: Yes posterior oropharynx normal Eyes: General: appearance normal, both eyes and all related structures Pupils: Equal, round and reactive pupils present Neck: Neck: Yes normal visual inspection Chest: Chest palpation & inspection: normal inspection of the chest Resp: Effort & Inspection: normal respiratory effort Auscultation: clear to auscultation bilaterally Cardio: Rate: regular rate Rhythm: regular rhythm Peripheral pulses: Peripheral pulses 2+ throughout GI: Inspection: Yes normal to inspection Palpation (GI): Soft to palpation and nontender Auscultation: normal bowel sounds Back/Spine/Pelvis: Thoracic/Lumbar Spine: thoracic and lumbar spine normal to inspection Skin: General skin exam: no rashes or lesions noted Neuro: General: patient oriented x3, no focal motor deficits and normal sensation to monofilament Cranial nerves: Yes Equal, round and reactive pupils present Cognition (Neuro): normal cognition Speech: No Abnormal speech present Gait exam (Neuro): Normal gait present Motor exam (neuro): 5/5 motor strength present throughout Extrem: Other: Tenderness to the right lateral ankle, full range of motion both actively and passively. Normal DP and PT pulses. No swelling, warmth, erythema. Sensation is intact distally. Negative Zee sign. General: Yes normal to inspection Course Course Course Narrative: This is rapid medical exam. Deferred additional HPI, ROS, PE to primary provider. 32 yo male with history of asthma here with complaints of right ankle pain after twisting injury today. WIll obtain x-ray. VSS Reevaluation(s) Reevaluation #1: X-ray shows no acute finding. Likely sprain. Patient will even Ajit wrap for home. Recommend rice. Offered crutches but refused Medical Decision Making Medical Decision Making MDM Narrative: 32-year-old male here with complaints of right ankle pain after twisting injury which occurred today. Tenderness to the right lateral ankle, full range of motion both actively and passively. Normal DP and PT pulses. No swelling, warmth, erythema. Sensation is intact distally. Negative Zee sign. Will check x-ray Differential Diagnosis Differential Diagnoses: The differential diagnosis associated with the presentation includes Sprain, strain, fracture, dislocation Low concern for vascular injury Independent Interpretation I performed an independent interpretation of an: Plain X-Ray Interpretation: I independently reviewed the x-ray and agree with the rad report Radiology Impression Discussion of test interpretation with radiology: I have reviewed the radiologist's reading. Radiologist Impression: [address] [address] XRay Report Signed Patient: Chirag Alvarez MR#: [id number] : 1990 Acct:[id number] Age/Sex: 32 / M ADM Date: 12/24/22 Loc: HO.ED Attending Dr: Ordering Physician: Neisha Amin NP Date of Service: 12/24/22 Procedure(s): XR ankle RT 2V Accession Number(s): [id number] cc: [facility]; Neisha Amin JEWEL OLIVING MACHINE OPERATOR~ EXAMINATION: XR ANKLE, RIGHT CLINICAL INFORMATION: Twisting injury. Rule out fracture.? COMPARISON: None available.? TECHNIQUE: AP, lateral, and mortise views of the right ankle. FINDINGS: No fracture. Alignment is anatomic. No erosions. Joint spaces are maintained. Soft tissues are normal.? XR/XR ankle RT 2V IMPRESSION: Unremarkable right ankle exam. Discharge Plan Discharge Clinical Impression: Ankle sprain and strain Patient Disposition: Home, Self-Care Instructions: Ankle Sprain (ED), Crutch Instructions (ED), How to Use an Elastic Bandage (ED) Additional Instructions: Ice, elevation Use the compression and crutches for the next few days Take Motrin or Tylenol for pain as needed Follow-up with primary care doctor for any continued symptoms Prescriptions: New ibuprofen 600 mg tablet 600 mg PO Q8H PRN (Reason: pain) Qty: 30 0RF No Action albuterol sulfate 2.5 mg /3 mL (0.083 %) solution for nebulization 2.5 mg inhalation Q4-6H PRN (Reason: shortness of breath or wheezing) Qty: 180 0RF (DME) nebulizers [Aeroneb Go Nebulizer] [facility] [place] See Rx Instructions .Route Qty: 1 0RF Rx Instructions: As directed (DME) nebulizer accessories Kit See Rx Instructions .Route Qty: 1 0RF Rx Instructions: As directed albuterol sulfate 90 mcg/actuation HFA aerosol inhaler 2 inh inhalation QID PRN (Reason: shortness of breath or wheezing) prednisone 20 mg tablet 2 tab PO DAILY Qty: 8 0RF Referrals: [facility] [Primary Care Provider] - 1 week
[2022-12-24 19:36] VITALS: BP 118/74; PULSE 84; RESP 16; TEMP 36.7; O2SAT 96; BMI 25.2
== END 2022-12-24 20:58 | disposition home or self-care (01) ==
LOC: HO.ED 20:41
PROVIDERS: Emergency Provider Student in an Organized Health Care Education/Training Program
DX: S93.401A Sprain of unspecified ligament of right ankle, initial encounter (principal); S96.911A Strain of unspecified muscle and tendon at ankle and foot level, right foot, initial encounter; X50.1XXA Overexertion from prolonged static or awkward postures, initial encounter; Y93.01 Activity, walking, marching and hiking; Y92.9 Unspecified place or not applicable; Y99.9 Unspecified external cause status
CPT/HCPCS: 73600; 99282; 99283

== ENCOUNTER 2022-12-27 07:39 | Emergency (ER) | payer MEDICAID, SELFPAY ==
--- NOTE | ~2022-12-27 | XR_ITS ---
EXAMINATION: XR CHEST CLINICAL INFORMATION: SOB COMPARISON: None available. TECHNIQUE: Frontal view of the chest was obtained. FINDINGS: No significant abnormality is noted involving the heart, lungs, mediastinum, bony thorax or soft tissues. XR/XR chest 1V IMPRESSION: Unremarkable chest examination.
[2022-12-27 07:58] VITALS: BP 136/95; PULSE 82; RESP 17; TEMP 36.5; O2SAT 93; BMI 24.7
--- NOTE | 2022-12-27 08:00 | PC.NURSE ---
pt reports asthma exacerbation/wheezing onset after walking 2-3 miles; usual trigger; used inhaler without improvement in sx. MD to bedside for primary eval. bilat wheezing ausc. throughout. vss; respirations even and unlabored; sats 94% RA. call peralta within reach.
--- NOTE | 2022-12-27 08:02 | ED_ITS ---
HPI - SOB/Dyspnea General Chief Complaint: Asthma Stated Complaint: asthma attack Time Seen by Provider: 12/27/22 07:46 Source: patient Mode of arrival: ambulatory Limitations: no limitations History of Present Illness HPI Narrative: A 32-year-old male with history of asthma presented with dry cough, wheezing, difficulty breathing started since this morning usually triggered by walking long distance and patient was walking about 3 miles. Patient denies any viral sickness symptoms, no runny nose, no sore throat, no chills, no fever, no sneezing. Patient has history of longstanding asthma stated that this presentation is typical for his asthma exacerbation. Related Data Home Medications Medication Instructions Recorded Confirmed albuterol sulfate 90 mcg/actuation 2 inh inhalation QID PRN shortness 02/02/22 12/27/22 aerosol inhaler of breath or wheezing fluticasone propionate 110 2 puff inhalation BID 12/27/22 12/27/22 mcg/actuation HFA aerosol inhaler (Flovent HFA) Previous Rx's Medication Instructions Recorded nebulizer accessories #1 ea 01/24/22 nebulizers (Aeroneb Go Nebulizer) #1 ea 01/24/22 albuterol sulfate 90 mcg/actuation 1 inh inhalation QID PRN shortness 12/27/22 aerosol inhaler of breath or wheezing #8.5 grams prednisone 20 mg tablet 20 mg PO BID #4 tabs 12/27/22 Allergies Allergy/AdvReac Type Severity Reaction Status Date / Time No Known Allergies Allergy Unknown unknown Verified 12/27/22 08:03 [NO KNOWN ALLERGIES] Review of Systems 2 Review of Systems: All other systems are reviewed and are negative Constitutional: Reports as per HPI and Reports no additional constitutional complaints Eyes: Reports as per HPI and Reports no additional eye complaints Reports system reviewed and no additional complaints, except as documented Cardiovascular: Reports as per HPI and Reports no additional cardiovascular complaints Respiratory: Reports as per HPI and Reports no additional respiratory complaints Gastrointestinal: Reports as per HPI and Reports no additional gastrointestinal complaints Genitourinary: Reports no additional female genitourinary complaints Musculoskeletal: Reports no additional musculoskeletal complaints Skin/Breast: Reports system reviewed and no additional complaints, except as docu Psychiatric: Reports no additional psychiatric complaints Endocrine: Reports no additional endocrine complaints Hematologic/Lymphatic: Reports no additional hematologic/lymphatic complaints Allergic/Immunologic: Reports no additional allergic/immunologic complaints Reports system reviewed and no additional complaints, except as documented and Reports Abnormal speech present [facility] Past Medical History Medical History Asthma Family History Family History Mother Asthma Father Asthma Social History Social History Alcohol intake: unknown Patient Tobacco Use Status: Never used Tobacco Substance Use Type: Marijuana Advance Directives: No service: No Current occupational status: employed Physical Exam 2 Vital Signs: Vital Signs: Last Vital Signs Temp 97.7 F 12/27/22 07:58 Pulse 79 12/27/22 11:57 Resp 16 12/27/22 11:57 BP 122/86 12/27/22 11:57 Pulse Ox 97 12/27/22 11:57 O2 Del Method Room Air 12/27/22 11:57 BMI result Body Mass Index 24.7 Vital signs have been reviewed as appeared to be correct. Blood pressure normal. Heart rate normal. Respiration rate normal. Temperature normal. Oxygen saturation normal. Appearance: Alert. Oriented X3. No acute distress. Head: Normal external exam. Normocephalic. Atraumatic. No Shepard signs noted. No raccoon eyes noted Eyes: PERRLA. EOMI. Conjunctiva and sclera normal. Eyelids normal. ENT: TM's Normal. Pharynx normal. Uvula midline. Moist mucous membranes. No trismus noted. No drooling noted. No muffled voice noted. Neck: Normal inspection. Neck supple. FROM. No adenopathy. Thyroid Normal. No meningeal signs. No neck mass noted. CVS: Normal heart rate and rhythm. Heart sound normal. No murmurs noted. Pulses normal throughout. Respiratory: No respiratory distress. Painless inspiration. Breath sounds normal. Diffuse mild expiratory wheezing with prolonged expiration and decreased air entry bilaterally. Chest nontender. No accessory muscle usage noted or decreased air movement noted. Abdomen: Soft and nontender. Bowel sounds normal in all 4 quadrants. No distention noted. No organomegaly noted. No visible injury noted. Back: No CVA tenderness. Full range of motion noted. Skin: Skin warm and dry. Normal skin color. Normal skin turgor. No rashes/lesions/lacerations noted. Extremities: No lower extremity edema. Extremities exhibit normal range of motion. Extremities nontender. Neuro: Oriented X 3. Cranial nerve exam: II-XII are grossly intact No motor deficit. No sensory deficit. Reflexes normal. Course Course Course Narrative: 32-year-old male with history of asthma, presented with acute wheezing and typical symptoms for patient's asthma after walking 2 to 3- last night known that exercise can precipitate his asthma. Patient received a 60 mg dose of oral prednisone with a continues 1 hour bronchodilator treatment with mild relief of his symptoms, repeat exam showing expiratory wheezing, patient left with asthma most of his life he knew that usually need to be hospitalized if wheezing is not relieved by 1 hour treatment. Repeat chest exam is revealing expiratory wheezing with persistent of decrease air entry bilaterally. Negative viral panel and chest x-ray in the emergency department. Reevaluation(s) Reevaluation #1: Patient ambulated in the ED with no SOB or worsening of wheezing, Patient now feels better, repeat exam show decreased wheezing with good air entry bilaterally patient O2 sat 97%, will discharge the patient with prescription of albuterol and prednisone for 2 days. Mild leukocytosis as affect of stress and prednisone. Time: 12:30 Medications Administered Discontinued Medications Generic Name Dose Route Start Last Admin Trade Name Freq PRN Reason Stop Dose Admin Albuterol Sulfate 7.5 mg 12/27/22 08:01 12/27/22 08:52 Albuterol Sulfate (0.083%) 2.5 Mg/3 Ml Vial.Neb INHALE 12/27/22 08:02 7.5 mg ONCE ONE Administration Albuterol/Ipratropium 3 ml 12/27/22 08:01 12/27/22 08:52 Albuterol/Iprat 2.5/0.5mg 3 Ml Ampul.Neb INHALE 12/27/22 08:02 3 ml ONCE ONE Administration Prednisone 60 mg 12/27/22 08:01 12/27/22 08:08 Prednisone 20 Mg Tablet PO 12/27/22 08:02 60 mg ONCE ONE Administration Medical Decision Making Differential Diagnosis Differential Diagnoses: The differential diagnosis associated with the presentation includes (Acute asthma exacerbation, pneumonia, viral infection, severe anemia, electrolyte abnormality.) Admission/Observation Consideration of admission/observation: Escalation of care including admission/observation considered Consult Healthcare Provider Management of the patient was discussed with: Hospitalist (Dr. Cooper) Lab Data MDM Lab Attestation statement: I reviewed the patient's lab results. 12/27/22 11:35 12/27/22 11:35 Labs: Lab Results 12/27/22 12/27/22 Range/Units 09:27 11:35 WBC 12.4 H (4.8-10.8) X10*3/uL RBC 5.55 (4.60-5.80) X10*6/uL Hgb 15.2 (14.0-18.0) g/dl Hct 45.6 (42.0-52.0) % MCV 82.2 (80.0-98.0) fL MCH 27.4 (27.0-33.0) pg MCHC 33.3 (31.0-36.0) g/dl RDW 13.2 (11.0-16.0) % Plt Count 211 (160-400) X10*3/uL MPV 10.7 (9.4-12.4) fL Immature Gran % (Auto) 0.2 (0.0-0.4) % Neut % (Auto) 92.0 H (45-73) % Lymph % (Auto) 5.9 L (20-40) % [place] % (Auto) 1.6 L (2-11) % Eos % (Auto) 0.1 (0-4) % Baso % (Auto) 0.2 (0-2) % Lymph # (Auto) 0.7 L (1.2-4.9) X10*3/uL [place] # (Auto) 0.2 (0.1-1.2) X10*3/uL Eos # (Auto) 0.0 (0.0-0.4) X10*3/uL Baso # (Auto) 0.0 (0.0-0.2) X10*3/uL Abs Immat Gran (auto) 0.03 (0.00-0.03) X10*3/uL Absolute Neuts (auto) 11.4 H (2.0-8.3) x10*3/uL Absolute Nucleated RBC 0.000 (0.0-0.012) X10*3/uL Nucleated RBC % (auto) 0.0 (0.0-0.2) /100WBC Sodium 139 (135-145) mmol/L Potassium 4.2 (3.3-5.1) mmol/L Chloride 101 (96-108) mmol/L Carbon Dioxide 30 H (22-29) mmol/L Anion Gap 12 (12-20) BUN 14 (9-16) mg/dL Creatinine 1.38 (0.5-1.4) mg/dL Estim Creat Clear Calc 59.3 Estimated GFR 60 Random Glucose 146 H (60-115) mg/dL Calcium 10.3 H D (8.4-10.2) mg/dL Influenza Type A (PCR) NEGATIVE (Negative) Influenza Type B (PCR) NEGATIVE (Negative) RSV RNA Qual (PCR) NEGATIVE (Negative) SARS-CoV-2 RNA (RT-PCR) NEGATIVE (Negative) Independent Interpretation I performed an independent interpretation of an: Plain X-Ray (Chest: No acute intrathoracic pathology.) Radiology Impression Discussion of test interpretation with radiology: I have reviewed the radiologist's reading. Chronic Conditions Patient?s care impacted by: Other (Exercise induced asthma.) Discharge Plan Discharge Clinical Impression: Asthma exacerbation Patient Disposition: Home, Self-Care Instructions: Asthma (ED) Prescriptions: New prednisone 20 mg tablet 20 mg PO BID Qty: 4 0RF albuterol sulfate 90 mcg/actuation HFA aerosol inhaler 1 inh inhalation QID PRN (Reason: shortness of breath or wheezing) Qty: 8.5 0RF No Action (DME) nebulizers [Aeroneb Go Nebulizer] [facility] See Rx Instructions .Route Qty: 1 0RF Rx Instructions: As directed (DME) nebulizer accessories Kit See Rx Instructions .Route Qty: 1 0RF Rx Instructions: As directed albuterol sulfate 90 mcg/actuation HFA aerosol inhaler 2 inh inhalation QID PRN (Reason: shortness of breath or wheezing) fluticasone propionate [Flovent HFA] 110 mcg/actuation HFA aerosol inhaler 2 puff INHALATION BID Referrals: [facility] [Primary Care Provider] -
[2022-12-27] MEDS: predniSONE 20 MG TABLET 60 MG PO (08:08)
--- NOTE | 2022-12-27 08:15 | PC.NURSE ---
pt medicated per mar. awaiting respiratory for breathing tx. pt denies feeling sob; sats remain 94% RA.
--- NOTE | 2022-12-27 08:39 | PC.NURSE ---
respiratory called for breathing tx.
[2022-12-27 08:52] VITALS: PULSE 70; RESP 15; O2SAT 95
[2022-12-27] MEDS: Albuterol Sulfate (0.083%) 2.5 MG/3 ML VIAL.NEB 7.5 MG INHALE (08:52)
[2022-12-27] MEDS: Albuterol/Iprat 2.5/0.5MG 3 ML AMPUL.NEB INHALE (08:52)
--- NOTE | 2022-12-27 08:52 | PC.NURSE ---
respiratory at bedside for breathing tx.
--- NOTE | 2022-12-27 09:20 | PC.NURSE ---
lung sounds cta Bilat upper lobes; expiratory wheezing improved bilat lower lobes however still present. pt reports still feeling tight but improved after breathing tx. sats 97% RA. nsr on monitor 90 bpm. respirations even and unlabored. call peralta within reach.
[2022-12-27 10:11] LABS: Influenza A PCR NEGATIVE (Negative); Influenza B PCR NEGATIVE (Negative); Resp Syncy Virus RNA Qual PCR NEGATIVE (Negative); SARS COV2 PCR INHOUSE NEGATIVE (Negative)
--- NOTE | 2022-12-27 11:19 | PHA.MEDREC ---
Pharmacy Consult ? Medication Reconciliation Pharmacy has completed the medication reconciliation.
[2022-12-27 11:45] LABS: Basophils Percent Auto 0.2 % (0-2); Eosinophils Percent Auto 0.1 % (0-4); Hematocrit 45.6 % (42.0-52.0); Hemoglobin 15.2 g/dl (14.0-18.0); Imm Gran Abs Auto 0.03 X10*3/uL (0.00-0.03); Imm Gran Pct Auto 0.2 % (0.0-0.4); Lymphocytes Absolute Auto 0.7 X10*3/uL (1.2-4.9); Lymphocytes Percent Auto 5.9 % (20-40); MANUAL DIFF FLAG SCAN; Mean Corpuscular HGB Conc 33.3 g/dl (31.0-36.0); Mean Corpuscular Hemoglobin 27.4 pg (27.0-33.0); Mean Corpuscular Volume 82.2 fL (80.0-98.0); Mean Platelet Volume 10.7 fL (9.4-12.4); Monocytes Absolute Auto 0.2 X10*3/uL (0.1-1.2); Monocytes Percent Auto 1.6 % (2-11); Neutrophils Absolute Auto 11.4 x10*3/uL (2.0-8.3); Platelet Count 211 X10*3/uL (160-400); Red Blood Count 5.55 X10*6/uL (4.60-5.80); Red Cell Distribution Width 13.2 % (11.0-16.0); SCAN SMEAR FLAG 1; White Blood Count 12.4 X10*3/uL (4.8-10.8)
--- NOTE | 2022-12-27 11:55 | PC.NURSE ---
vss. respirations even and unlabored. sats 97% RA. lung sounds cta throughout R. side and L. upper; some wheezing ausc. L. lower lobe. pt denies cp/sob. awaiting bed assignment. call peralta within reach.
[2022-12-27 11:57] VITALS: BP 122/86; PULSE 79; RESP 16; O2SAT 97
[2022-12-27 12:01] LABS: Anion Gap 12 (12-20); Blood Urea Nitrogen 14 mg/dL (9-16); Calcium 10.3 mg/dL (8.4-10.2); Carbon Dioxide 30 mmol/L (22-29); Chloride 101 mmol/L (96-108); Creatinine Clr Calc Pharmacy 59.3; Estimated Glomerular Filt Rate 60; Glucose Random 146 mg/dL (60-115); Potassium 4.2 mmol/L (3.3-5.1); Sodium 139 mmol/L (135-145)
[2022-12-27 12:37] VITALS: O2SAT 97
[2022-12-27 13:38] LABS: SLIDE REVIEW VERIFIED
== END 2022-12-27 12:42 | disposition home or self-care (01) ==
PROVIDERS: Emergency Provider Emergency Medicine
DX: J45.901 Unspecified asthma with (acute) exacerbation (principal); Z20.822 Contact with and (suspected) exposure to COVID-19; Z20.828 Contact with and (suspected) exposure to other viral communicable diseases; F12.90 Cannabis use, unspecified, uncomplicated
CPT/HCPCS: 0241U; 36415; 71045; 80048; 85025; 94640; 99284; 99285

== ENCOUNTER 2023-12-15 11:17 | Outpatient (REF) | payer MEDICAID, SELFPAY ==
[2023-12-15 13:20] LABS: MANUAL DIFF FLAG NO
[2023-12-15 13:29] LABS: Basophils Absolute Auto 0.1 X10*3/uL (0.0-0.2); Basophils Percent Auto 0.7 % (0-2); Eosinophils Absolute Auto 0.5 X10*3/uL (0.0-0.4); Eosinophils Percent Auto 6.8 % (0-4); Hematocrit 43.3 % (42.0-52.0); Hemoglobin 14.4 g/dl (14.0-18.0); Imm Gran Abs Auto 0.02 X10*3/uL (0.00-0.03); Imm Gran Pct Auto 0.3 % (0.0-0.4); Lymphocytes Absolute Auto 2.5 X10*3/uL (1.2-4.9); Lymphocytes Percent Auto 34.4 % (20-40); Mean Corpuscular HGB Conc 33.3 g/dl (31.0-36.0); Mean Corpuscular Hemoglobin 27.7 pg (27.0-33.0); Mean Corpuscular Volume 83.3 fL (80.0-98.0); Mean Platelet Volume 11.1 fL (9.4-12.4); Monocytes Absolute Auto 0.5 X10*3/uL (0.1-1.2); Monocytes Percent Auto 7.5 % (2-11); Neutrophils Absolute Auto 3.6 x10*3/uL (2.0-8.3); Neutrophils Percent Auto 50.3 % (45-73); Platelet Count 262 X10*3/uL (160-400); Red Cell Distribution Width 13.5 % (11.0-16.0); White Blood Count 7.2 X10*3/uL (4.8-10.8)
[2023-12-15 13:43] LABS: Estimated Average Glucose 103 mg/dL; Hemoglobin A1c % 5.2 % (<6.0)
[2023-12-15 13:56] LABS: Alanine Aminotransferase 23 U/L (0-40); Albumin Level 4.6 g/dL (3.5-5.0); Alkaline Phosphatase 71 U/L (39-117); Anion Gap 14 (12-20); Aspartate Amino Transferase 22 U/L (5-37); Bilirubin Direct 0.1 mg/dL (0.0-0.5); Bilirubin Total 0.4 mg/dL (0.0-1.0); Blood Urea Nitrogen 9 mg/dL (9-16); Calcium 10.4 mg/dL (8.4-10.2); Carbon Dioxide 25 mmol/L (22-29); Chloride 107 mmol/L (96-108); Cholesterol 186 mg/dL (<200); Estimated Glomerular Filt Rate > 60; Glucose Random 91 mg/dL (60-115); HDL Cholesterol 42 mg/dL (>40); LDL Cholesterol Calculated 102 mg/dL (<100); Potassium 3.8 mmol/L (3.3-5.1); Sodium 142 mmol/L (135-145); Total Protein 7.8 g/dL (6.5-8.0); Triglycerides 210 mg/dL (<150)
[2023-12-15 14:47] LABS: CT PCR NOT DETECTED (Not Detect.); NG PCR NOT DETECTED (Not Detect.)
[2023-12-16 05:14] LABS: ~HepC Num1 0.17 S/CO (0.00-0.79); ~Hepatitis C Antibody Nonreactive (Nonreactive)
[2023-12-18 17:39] LABS: HIV RNA PCR Qn Copies Not Detected Copies/mL; HIV RNA PCR Qn Log Copies Not Detected Log cps/mL
== END 2023-12-15 11:18 | disposition home or self-care (01) ==
LOC: HO.HHCL 11:17
PROVIDERS: Visit Provider Internal Medicine
DX: Z00.00 Encounter for general adult medical examination without abnormal findings (principal)
CPT/HCPCS: 36415; 80048; 80061; 80076; 83036; 85025; 86803; 87491; 87536; 87591; 87900

== ENCOUNTER 2025-03-04 11:37 | Emergency (ER) | payer MEDICAID, SELFPAY ==
[2025-03-04 11:39] VITALS: BP 131/72; PULSE 84; RESP 18; TEMP 36.8; O2SAT 98; BMI 27.0
--- NOTE | 2025-03-04 11:41 | ED_ITS ---
HPI - General Adult General Chief complaint: Upper Respiratory Symptoms Stated complaint: Fever Body Aches Time Seen by Provider: 03/04/25 12:14 Source: patient Mode of arrival: ambulatory Limitations: no limitations History of Present Illness ED Provider: Neisha Brooks APRN HPI narrative: 35 yo male with history of asthma here with complaints of chills, body aches, cough, malaise, shortness of breath, diarrhea. Needed to use his albuterol inhaler once before arrival. No fevers, chest pain, vomiting, abdominal pain, skin rash, neck pain or neck stiffness. No recent travel. No sick contact. Related Data Home Medications ?Medication ?Instructions ?Recorded ?Confirmed albuterol sulfate 90 mcg/actuation 2 inh inhalation QI D PRN shortness 02/02/22 12/27/22 aerosol inhaler of breath or wheezing fluticasone propionate 110 2 puff inhalation BID 12/2712/27/22 mcg/actuation HFA aerosol inhaler (Flovent HFA) Previous Rx's ?Medication ?Instructions ?Recorded nebulizer accessories #1 ea 01/24/22 nebulizers (Aeroneb Go Nebulizer) #1 ea 01/24/22 albuterol sulfate 90 mcg/actuation 1 inh inhalation QI D PRN shortness 12/27/22 aerosol inhaler of breath or wheezing #8.5 g ирина prednisone 20 mg tablet 20 mg PO BID #4 tabs 3 acetaminophen 325 mg capsule 650 mg (2 x 325 mg) PO Q4 H PRN 03/04/25 fever or pain #60 caps albuterol sulfate 90 mcg/actuation 2 inh inhalation Q4 H PRN shortness 03/04/25 breath activated powder inhaler of breath or wheezing #1 ea ibuprofen 600 mg tablet 600 mg PO Q6H PRN fever or p ain 03/04/25 #30 tabs Allergies Allergy/AdvReac Type Severity Reaction Status Date / Time No Known Allergies (NO KNOWN Allergy Unknown unknown Verified 03/04/25 11:42 ALLERGIES) Review of Systems Review of Systems: Yes all other systems are reviewed and are negative Constitutional: Constitutional: Reports no additional constitutional complain ts, Reports body ache(s), Reports chills, Denies fever(s), Denies headache(s), Reports malaise and Denies weakness Eyes: Eyes: Reports no additional eye complaints and Denies change in vision ENT: Reports system reviewed and no additional complaints, except as documented, Denies dizziness, Denies headache(s), Denies nasal congestion, Denies nasal discharge and Denies neck pain Cardiovascular: Cardiovascular: Reports no additional cardiovascular complaints, Denies chest pain, Denies leg edema and Reports dyspnea Respiratory: Respiratory: Reports no additional respiratory complaints, Reports cough and Reports dyspnea Gastrointestinal: Gastrointestinal: Reports no additional gastrointestinal complaints, Denies abdominal pain, Reports diarrhea, Denies nausea and Denies vomiting Genitourinary: Genitourinary: Denies urinary incontinence Musculoskeletal: Musculoskeletal: Reports no additional musculoskeletal complaints, Denies back pain, Denies arthralgias, Denies joint swelling, Denies neck pain, Denies numbness and Denies tingling Integumentary/Breasts: Skin/Breast: Reports system reviewed and no additional complaints, except as docu and Denies rash Neurologic: Reports system reviewed and no additional complaints, except as documented, Denies Abnormal speech present, Denies dizziness, Denies headache(s), Denies numbness, Denies tingling and Denies weakness PMFSH Past Medical History Attestation statement: The following information was validated with the patient. Source: old records reviewed and nursing notes reviewed Medical History Asthma Family History Family History Mother Asthma Father Asthma Social History Social History Alcohol intake: unknown Patient Tobacco Use Status: Never used Tobacco Substance Use Type: Marijuana Advance Directives: No Advance Directives Information Provided: Yes service: No Current occupational status: employed Physical Exam ED Vital Signs: Vital Signs - 24 hr 03/04/25 11:39 03/04/25 12:48 Temperature 98.3 F 98.3 F Pulse Rate 84 84 Respiratory Rate 18 18 Blood Pressure 131/72 131/72 Pulse Oximetry 98 98 Oxygen Delivery Method Room Air Room Air BMI result Body Mass Index 27.0 Const General: cooperative, healthy appearing, comfortable and no acute distress Orientation/consciousness: patient oriented x3 Limitations: no limitations HENMT Head: Yes normal to inspection Ears: hearing grossly normal bilaterally and TM's normal bilaterally General nose exam: Normal external nose present Face and sinus: Yes normal facial exam Mouth: Normal oral and palatal mucosa present Throat: Yes posterior oropharynx normal, Yes tonsils normal and Yes uvula midline Eyes General: appearance normal, both eyes and all related structures Pupils: Equal, round and reactive pupils present Neck Neck: Yes normal visual inspection, Yes full ROM, Yes no lymphadenopathy and Yes no meningeal signs Chest Chest palpation & inspection: normal inspection of the chest Resp Effort & Inspection: normal respiratory effort Auscultation: clear to auscultation bilaterally Cardio Rate: regular rate Rhythm: regular rhythm Peripheral pulses: Peripheral pulses 2+ throughout GI Inspection: Yes normal to inspection Palpation (GI): Soft to palpation and nontender Auscultation: normal bowel sounds Back/Spine/Pelvis Thoracic/Lumbar Spine: thoracic and lumbar spine normal to inspection Skin General skin exam: no rashes or lesions noted Neuro General: patient oriented x3, no meningeal signs, no focal motor deficits and normal sensation to monofilament Cranial nerves: Yes Equal, round and reactive pupils present Cognition (Neuro): normal cognition Speech: No Abnormal speech present Gait exam (Neuro): Normal gait present Motor exam (neuro): 5/5 motor strength present throughout Extrem General: Yes normal to inspection, Yes no calf tenderness and No edema Course Course Course Narrative: Neisha Brooks SERVICE AND REPAIR SUPERVISOR 03/04 1141 This is a rapid medical exam. Deferred additional HPI, ROS, PE to primary provider. 35 yo male with history of asthma here with flu like symptoms with waking. Will obtain viral testing VSS Medical Decision Making Medical Decision Making MDM Narrative: 35 yo male with history of asthma here with complaints of chills, body aches, cough, malaise, shortness of breath, diarrhea. Needed to use his albuterol inhaler once before arrival. No fevers, chest pain, vomiting, abdominal pain, skin rash, neck pain or neck stiffness. No recent travel. No sick contact. Exam is normal VSS Will send viral testing Differential Diagnosis Differential Diagnoses: The differential diagnosis associated with the presentation includes influenza, strep pharyngitis, viral syndrome. aom Admission/Observation Consideration of admission/observation: Escalation of care including admission/observation considered COVID +, no hypoxia or tachypnea requiring supplemental oxygen and or admission Lab Data [facility] Lab Attestation statement: I reviewed the patient's lab results. Labs: Lab Results 03/04/25 Range/Units 11:46 Influenza Type A (PCR) NEGATIVE (Negative) Influenza Type B (PCR) NEGATIVE (Negative) RSV RNA Qual (PCR) NEGATIVE (Negative) SARS-CoV-2 RNA (RT-PCR) POSITIVE A (Negative) Tests considered The following testing was considered but not selected: no hypoxia or tachypnea requiring CXR Prescription Management I considered prescription management with: Pain Medication and Antiviral Discharge Plan Discharge Clinical Impression: COVID-19 Patient Disposition: Home, Self-Care Instructions: COVID-19 (Coronavirus Disease 2019) (ED) Additional Instructions: Testing for COVID is positive Testing for flu and RSV are negative Quarantine for 5 days Alternate motrin or tylenol for pain or fever Increase fluids, rest Return for worsening symptoms Prescriptions: New ibuprofen 600 mg tablet 600 mg PO Q6H PRN (Reason: fever or pain) Qty: 30 0RF acetaminophen 325 mg capsule 650 mg PO Q4H PRN (Reason: fever or pain) Qty: 60 0RF albuterol sulfate 90 mcg/actuation aerosol powdr breath activated 2 inh inhalation Q4H PRN (Reason: shortness of breath or wheezing) Qty: 1 0RF No Action (DME) nebulizers [Aeroneb Go Nebulizer] Misc See Rx Instructions .Route Qty: 1 0RF Rx Instructions: As directed (DME) nebulizer accessories Kit See Rx Instructions .Route Qty: 1 0RF Rx Instructions: As directed albuterol sulfate 90 mcg/actuation HFA aerosol inhaler 2 inh inhalation QID PRN (Reason: shortness of breath or wheezing) fluticasone propionate [Flovent HFA] 110 mcg/actuation HFA aerosol inhaler 2 puff INHALATION BID prednisone 20 mg tablet 20 mg PO BID Qty: 4 0RF albuterol sulfate 90 mcg/actuation HFA aerosol inhaler 1 inh inhalation QID PRN (Reason: shortness of breath or wheezing) Qty: 8.5 0RF Referrals: Irene Nunez MD [Primary Care Provider, Medical] Stand Alone Forms: Work/School Release Interventions: ED Discharge Assessment Last Done: 03/04/25 12:48 Discharge Date/Time: 03/04/25 12:49 Print Language: Danish
[2025-03-04 12:34] LABS: Resp Syncy Virus RNA Qual PCR NEGATIVE (Negative); SARS COV2 PCR INHOUSE POSITIVE (Negative)
[2025-03-04 12:48] VITALS: BP 131/72; PULSE 84; RESP 18; TEMP 36.8; O2SAT 98
== END 2025-03-04 12:49 | disposition home or self-care (01) ==
PROVIDERS: Nurse Practitioner Family; Emergency Provider Emergency Medicine; PCP Family Medicine
DX: U07.1 COVID-19 (principal); J45.909 Unspecified asthma, uncomplicated
CPT/HCPCS: 87637; 99282; 99283